=== PATIENT | male | born 1960 | race Caucasian/White ===

== ENCOUNTER → 2016-09-10 | Outpatient (REF) | payer BC | LOC: M SFHCPLAZ 12:20 → M LAB REF 12:20 | PROVIDERS: ATTEND Dermatology | DX: L57.0 Actinic keratosis (principal) ==

== ENCOUNTER → 2016-10-31 | Outpatient (REF) | payer BC ==
[2016-10-31 13:15] LABS: MEAN CORPUSCULAR HEMOGLOBIN 30.5 pg (27.0-33.0); MEAN CORPUSCULAR HGB CONC 32.6 g/dl (32.0-36.5); MEAN CORPUSCULAR VOLUME 93.8 fl (80.0-96.0); RED CELL DISTRIBUTION WIDTH 12.9 % (11.5-14.5); WHITE BLOOD COUNT 5.8 K/mm3 (4.0-10.0)
[2016-10-31 13:26] LABS: ALBUMIN 3.7 GM/DL (3.2-5.2); ALBUMIN/GLOBULIN RATIO 1.28 (1.00-1.93); BILIRUBIN,TOTAL 0.9 MG/DL (0.2-1.0); CREATININE FOR GFR 1.38 MG/DL (0.70-1.30); GLOMERULAR FILTRATION RATE 56.5 (>56); POTASSIUM SERUM 3.9 MEQ/L (3.5-5.1); TOTAL PROTEIN 6.6 GM/DL (6.4-8.2)
== END ==
LOC: M SFHCPLAZ 08:05
PROVIDERS: ATTEND Family Medicine
DX: M32.10 Systemic lupus erythematosus, organ or system involvement unspecified (principal); M33.29 Polymyositis with other organ involvement; E78.2 Mixed hyperlipidemia; N18.3 Chronic kidney disease, stage 3 (moderate)

== ENCOUNTER → 2017-05-06 | Outpatient (REF) | payer BC ==
[2017-05-06 12:32] LABS: MEAN CORPUSCULAR HEMOGLOBIN 29.8 pg (27.0-33.0); MEAN CORPUSCULAR HGB CONC 32.5 g/dl (32.0-36.5); MEAN CORPUSCULAR VOLUME 91.5 fl (80.0-96.0); PLATELET COUNT, AUTOMATED 210 10^3/uL (150-450); RED CELL DISTRIBUTION WIDTH 12.7 % (11.5-14.5); WHITE BLOOD COUNT 7.6 10^3/uL (4.0-10.0)
[2017-05-06 13:04] LABS: ALBUMIN 3.8 GM/DL (3.2-5.2); ALBUMIN/GLOBULIN RATIO 1.19 (1.00-1.93); BILIRUBIN,TOTAL 0.7 MG/DL (0.2-1.0); CREATININE FOR GFR 1.55 MG/DL (0.70-1.30); GLOMERULAR FILTRATION RATE 49.3 (>56); POTASSIUM SERUM 4.2 MEQ/L (3.5-5.1)
== END ==
LOC: M SFHCADAM 08:04
PROVIDERS: ATTEND Family Medicine
DX: N18.3 Chronic kidney disease, stage 3 (moderate) (principal); M33.29 Polymyositis with other organ involvement; E78.2 Mixed hyperlipidemia; Z12.5 Encounter for screening for malignant neoplasm of prostate
CPT/HCPCS: 80053; 80061; 82550; 85027; G0103

== ENCOUNTER → 2017-11-05 | Outpatient (REF) | payer BC, MEDICARE ==
[2017-11-05 19:24] LABS: ALBUMIN 3.5 GM/DL (3.2-5.2); ALKALINE PHOSPHATASE 52 U/L (45-117); ALT/SGPT 25 U/L (12-78); ANION GAP 6 MEQ/L (8-16); AST/SGOT 13 U/L (7-37); BILIRUBIN,TOTAL 0.5 MG/DL (0.2-1.0); BLOOD UREA NITROGEN 12 MG/DL (7-18); CALCIUM LEVEL 8.5 MG/DL (8.5-10.1); CARBON DIOXIDE LEVEL 29 MEQ/L (21-32); CHLORIDE LEVEL 108 MEQ/L (98-107); CPK CREATINE PHOSPHOKINASE 149 U/L (39-308); CREATININE FOR GFR 1.31 MG/DL (0.70-1.30); GLOMERULAR FILTRATION RATE 59.8 (>56); GLUCOSE, FASTING 95 MG/DL (70-100); POTASSIUM SERUM 4.2 MEQ/L (3.5-5.1); SODIUM LEVEL 143 MEQ/L (136-145); TOTAL PROTEIN 6.2 GM/DL (6.4-8.2)
[2017-11-05 19:28] LABS: HEMATOCRIT 43.4 % (42.0-52.0); HEMOGLOBIN 13.8 g/dl (13.5-17.5); MEAN CORPUSCULAR HEMOGLOBIN 29.8 pg (27.0-33.0); MEAN CORPUSCULAR HGB CONC 31.8 g/dl (32.0-36.5); MEAN CORPUSCULAR VOLUME 93.7 fl (80.0-96.0); PLATELET COUNT, AUTOMATED 179 10^3/uL (150-450); RED BLOOD COUNT 4.63 10^6/uL (4.30-6.10); WHITE BLOOD COUNT 8.1 10^3/uL (4.0-10.0)
[2017-11-05 20:16] LABS: ERYTHROCYTE SEDIMENTATION RATE 1 mm/hr (0-20)
== END ==
LOC: M SFHCADAM 11:47
DX: N18.3 Chronic kidney disease, stage 3 (moderate) (principal); M33.29 Polymyositis with other organ involvement
CPT/HCPCS: 82550

== ENCOUNTER → 2018-01-06 | Outpatient (CLI) | payer MEDICARE, BC ==
[~2018-01-06] MED LIST: GASTROGRAFIN SOLUTION 30ML (Q9963) As Ordered; ISOVUE-370 76% 100ML VIAL (Q9967) As Ordered
== END ==
LOC: M RAD 11:59
DX: R10.32 Left lower quadrant pain (principal); Z87.448 Personal history of other diseases of urinary system
CPT/HCPCS: Q9963

== ENCOUNTER → 2018-01-09 | Outpatient (CLI) | payer MEDICARE, BC ==
[~2018-01-09] MED LIST changes: +E-Z-GAS II EFFERVESCENT PACKET (SODIUM BICARB./CITRIC ACID/SIMETHICONE) As Ordered; +E-Z-HD 98% w/w 340GM SUSP BTL As Ordered; +E-Z-PAQUE 96% w/w SUSP 176GM BTL As Ordered; -GASTROGRAFIN SOLUTION 30ML (Q9963) As Ordered; -ISOVUE-370 76% 100ML VIAL (Q9967) As Ordered
== END ==
LOC: M RAD 10:32
DX: R13.10 Dysphagia, unspecified (principal)
CPT/HCPCS: 74220

== ENCOUNTER → 2018-01-19 | Outpatient (CLI) | payer MEDICARE, BC ==
[2018-01-19 17:19] LABS: ANION GAP 5 MEQ/L (8-16); BLOOD UREA NITROGEN 16 MG/DL (7-18); CARBON DIOXIDE LEVEL 31 MEQ/L (21-32); CHLORIDE LEVEL 104 MEQ/L (98-107); CREATININE FOR GFR 1.38 MG/DL (0.70-1.30); GLOMERULAR FILTRATION RATE 56.3 (>56); GLUCOSE, FASTING 104 MG/DL (70-100); POTASSIUM SERUM 4.3 MEQ/L (3.5-5.1); SODIUM LEVEL 140 MEQ/L (136-145)
== END ==
LOC: M SMT 14:41
DX: N13.0 Hydronephrosis with ureteropelvic junction obstruction (principal)
CPT/HCPCS: 80048

== ENCOUNTER → 2018-01-19 | Outpatient (REF) | payer MEDICARE, BC ==
[2018-01-19 17:48] LABS: APPEARANCE, URINE CLEAR (CLEAR); BACTERIA, URINE AUTO NEGATIVE (NEGATIVE); BILIRUBIN, URINE AUTO NEGATIVE (NEGATIVE); BLOOD, URINE BLOOD NEGATIVE (NEGATIVE); COLOR, URINE STRAW (YELLOW); GLUCOSE, URINE (UA) AUTO NEGATIVE (NEGATIVE); KETONE, URINE AUTO NEGATIVE (NEGATIVE); LEUKOCYTE ESTERASE, URINE AUTO NEGATIVE (NEGATIVE); NITRITE, URINE AUTO NEGATIVE (NEGATIVE); PROTEIN, URINE AUTO NEGATIVE (NEGATIVE); RBC, URINE AUTO 0 /HPF (0-3); SQUAMOUS EPITHELIAL CELL UR AU 0 /HPF (0-6); UROBILINOGEN, URINE AUTO 0.2 mg/dL (0.0-2.0); WBC, URINE AUTO 1 /HPF (0-3)
== END ==
LOC: M SMT 17:27
DX: N13.0 Hydronephrosis with ureteropelvic junction obstruction (principal)
CPT/HCPCS: 81001

== ENCOUNTER → 2018-01-22 | Outpatient (CLI) | payer MEDICARE, BC ==
[~2018-01-22] MED LIST changes: -E-Z-GAS II EFFERVESCENT PACKET (SODIUM BICARB./CITRIC ACID/SIMETHICONE) As Ordered; -E-Z-HD 98% w/w 340GM SUSP BTL As Ordered; -E-Z-PAQUE 96% w/w SUSP 176GM BTL As Ordered; +ISOVUE-370 76% 100ML VIAL (Q9967) As Ordered
== END ==
LOC: M RAD 07:57
DX: I31.3 Pericardial effusion (noninflammatory) (principal); N28.1 Cyst of kidney, acquired; N40.0 Benign prostatic hyperplasia without lower urinary tract symptoms
CPT/HCPCS: Q9967

== ENCOUNTER → 2018-04-30 | Outpatient (CLI) | payer MEDICARE, BC ==
[2018-04-30 13:06] LABS: BASO # 0.1 10^3/uL (0.0-0.2); BASO % 0.7 % (0.0-1.0); EOS # 0.1 10^3/uL (0.0-0.50); EOS % 1.4 % (0.0-3.0); HEMATOCRIT 44.1 % (42.0-52.0); HEMOGLOBIN 14.1 g/dl (13.5-17.5); IMMATURE GRANULOCYTE % 0.4 % (0-3.0); LYMPH # 1.7 10^3/uL (1.5-4.5); LYMPH % 23.4 % (24.0-44.0); MEAN CORPUSCULAR HEMOGLOBIN 29.8 pg (27.0-33.0); MEAN CORPUSCULAR VOLUME 93.2 fl (80.0-96.0); MONO # 0.6 10^3/uL (0.0-0.8); MONO % 7.7 % (0.0-5.0); NEUTROPHILS # 4.9 10^3/uL (1.8-7.7); NEUTROPHILS % 66.4 % (36.0-66.0); PLATELET COUNT, AUTOMATED 170 10^3/uL (150-450); RED BLOOD COUNT 4.73 10^6/uL (4.30-6.10); RED CELL DISTRIBUTION WIDTH 12.8 % (11.5-14.5); WHITE BLOOD COUNT 7.3 10^3/uL (4.0-10.0)
[2018-04-30 13:49] LABS: ERYTHROCYTE SEDIMENTATION RATE 1 mm/hr (0-20)
[2018-04-30 13:54] LABS: ALT/SGPT 31 U/L (12-78); AST/SGOT 20 U/L (7-37); C REACTIVE PROTEIN QUANTITATIV < 0.30 MG/DL (0.00-0.30); CPK CREATINE PHOSPHOKINASE 290 U/L (39-308); CREATININE FOR GFR 1.34 MG/DL (0.70-1.30); GLOMERULAR FILTRATION RATE 58.1 (>56)
[2018-04-30 13:54] LABS: BLOOD UREA NITROGEN 16 MG/DL (7-18)
[2018-04-30 15:02] LABS: COMPLEMENT C3 99 MG/DL (90-180); COMPLEMENT C4 24 MG/DL (10-40)
[2018-05-02 00:57] LABS: ANTI DOUBLE STRAND-DNA AB 17 IU/mL (0-9)
== END ==
LOC: M LABDRWAD 11:18
DX: M32.9 Systemic lupus erythematosus, unspecified (principal); G72.9 Myopathy, unspecified; Z79.899 Other long term (current) drug therapy
CPT/HCPCS: 84460

== ENCOUNTER → 2019-02-03 | Outpatient (CLI) | payer MEDICARE, BC ==
--- NOTE | 2019-02-03 10:50 | REP ---
Clinical: Renal cyst. Technique: Real time mario scale and color evaluation using curved array transducer. Findings: Right kidney is normal in contour, size, echogenicity without hydronephrosis, nephrolithiasis, cystic or renal mass lesion and measures 10.4 x 4.2 x 6.5 cm. The left kidney measures 11.5 x 6.9 x 6.0 cm and is normal in contour, size, echogenicity without hydronephrosis, nephrolithiasis or renal mass lesion. Multiple relatively simple appearing left peripelvic cysts are appreciated and confirmed by CT dated 01/22/2018. Impression: 1. Simple left peripelvic cysts. No definite hydronephrosis. 2. Normal right kidney. Electronically Signed by Juanito Neri MD 02/03/2019 10:42 A
== END ==
LOC: M RAD 09:49
PROVIDERS: ATTEND Internal Medicine Nephrology
DX: N28.1 Cyst of kidney, acquired (principal)

== ENCOUNTER → 2019-05-12 | Outpatient (REF) | payer MEDICARE, BC ==
[2019-05-12 13:36] LABS: BASO % 0.5 % (0.0-1.0); EOS # 0.1 10^3/uL (0.0-0.5); EOS % 1.1 % (0.0-3.0); HEMATOCRIT 46.5 % (42.0-52.0); HEMOGLOBIN 14.6 g/dl (13.5-17.5); LYMPH # 1.7 10^3/uL (1.5-5.0); LYMPH % 20.8 % (24.0-44.0); MEAN CORPUSCULAR HEMOGLOBIN 29.8 pg (27.0-33.0); MEAN CORPUSCULAR HGB CONC 31.4 g/dl (32.0-36.5); MEAN CORPUSCULAR VOLUME 94.9 fl (80.0-96.0); MONO # 0.6 10^3/uL (0.0-0.8); MONO % 7.1 % (0.0-5.0); NEUTROPHILS # 5.8 10^3/uL (1.5-8.5); NEUTROPHILS % 70.1 % (36.0-66.0); PLATELET COUNT, AUTOMATED 180 10^3/uL (150-450); WHITE BLOOD COUNT 8.3 10^3/uL (4.0-10.0)
[2019-05-12 14:07] LABS: ERYTHROCYTE SEDIMENTATION RATE 1 mm/hr (0-20)
[2019-05-12 15:32] LABS: ALT/SGPT 32 U/L (12-78); C REACTIVE PROTEIN QUANTITATIV < 0.30 MG/DL (0.00-0.30); CREATININE FOR GFR 1.48 MG/DL (0.70-1.30); GLOMERULAR FILTRATION RATE 51.6 (>49)
== END ==
LOC: M LABDRWAD 12:25
PROVIDERS: ATTEND Physician Assistant Medical
DX: Z79.899 Other long term (current) drug therapy (principal)

== ENCOUNTER → 2019-06-24 | Outpatient (REF) | payer MEDICARE, BC ==
[2019-06-24 13:01] LABS: ALBUMIN 4.4 GM/DL (3.2-5.2); BILIRUBIN,TOTAL 0.6 MG/DL (0.2-1.0); CALCIUM LEVEL 9.2 MG/DL (8.8-10.2); CREATININE FOR GFR 1.53 MG/DL (0.70-1.30); FREE T4 1.04 NG/DL (0.76-1.46); GLOMERULAR FILTRATION RATE 49.7 (>49); POTASSIUM SERUM 4.3 MEQ/L (3.5-5.1); THYROID STIMULATING HORMONE 2.34 uIU/ML (0.358-3.740); TOTAL PROTEIN 6.9 GM/DL (6.4-8.2)
== END ==
LOC: M SFHCADAM 10:44
PROVIDERS: ATTEND Family Medicine
DX: M33.29 Polymyositis with other organ involvement (principal); M32.10 Systemic lupus erythematosus, organ or system involvement unspecified; I73.00 Raynaud's syndrome without gangrene; Z12.5 Encounter for screening for malignant neoplasm of prostate
CPT/HCPCS: 80053; 82550; 84439; 84443; G0103; G0463

== ENCOUNTER → 2019-11-12 | Outpatient (REF) | payer MEDICARE, BC ==
[2019-11-12 13:08] LABS: BASO % 0.4 % (0.0-1.0); EOS # 0.1 10^3/uL (0.0-0.5); EOS % 1.3 % (0.0-3.0); HEMATOCRIT 44.9 % (42.0-52.0); HEMOGLOBIN 14.3 g/dl (13.5-17.5); LYMPH # 2.1 10^3/uL (1.5-5.0); LYMPH % 27.8 % (24.0-44.0); MEAN CORPUSCULAR HEMOGLOBIN 29.9 pg (27.0-33.0); MEAN CORPUSCULAR HGB CONC 31.8 g/dl (32.0-36.5); MEAN CORPUSCULAR VOLUME 93.9 fl (80.0-96.0); MONO # 0.6 10^3/uL (0.0-0.8); MONO % 8.2 % (0.0-5.0); NEUTROPHILS # 4.8 10^3/uL (1.5-8.5); PLATELET COUNT, AUTOMATED 206 10^3/uL (150-450); RED BLOOD COUNT 4.78 10^6/uL (4.30-6.10); WHITE BLOOD COUNT 7.7 10^3/uL (4.0-10.0)
[2019-11-12 13:31] LABS: ALT/SGPT 29 U/L (12-78); C REACTIVE PROTEIN QUANTITATIV < 0.30 MG/DL (0.00-0.30); CREATININE FOR GFR 1.44 MG/DL (0.70-1.30); GLOMERULAR FILTRATION RATE 53.3 (>49)
[2019-11-12 13:38] LABS: ERYTHROCYTE SEDIMENTATION RATE 2 mm/hr (0-20)
== END ==
LOC: M LABDRWAD 12:30
PROVIDERS: ATTEND Physician Assistant Medical
DX: M32.9 Systemic lupus erythematosus, unspecified (principal); Z79.899 Other long term (current) drug therapy

== ENCOUNTER → 2019-11-23 | Outpatient (REF) | payer MEDICARE, BC ==
[2019-11-23 17:12] LABS: HEMATOCRIT 45.9 % (42.0-52.0); HEMOGLOBIN 14.9 g/dl (13.5-17.5); MEAN CORPUSCULAR HEMOGLOBIN 29.4 pg (27.0-33.0); MEAN CORPUSCULAR HGB CONC 32.5 g/dl (32.0-36.5); MEAN CORPUSCULAR VOLUME 90.5 fl (80.0-96.0); PLATELET COUNT, AUTOMATED 184 10^3/uL (150-450); RED BLOOD COUNT 5.07 10^6/uL (4.30-6.10); WHITE BLOOD COUNT 6.8 10^3/uL (4.0-10.0)
[2019-11-23 17:32] LABS: ALBUMIN 4.1 GM/DL (3.2-5.2); CALCIUM LEVEL 9.3 MG/DL (8.8-10.2); CHOLESTEROL RISK RATIO 4.428 (<5); CREATININE FOR GFR 1.47 MG/DL (0.70-1.30); POTASSIUM SERUM 4.3 MEQ/L (3.5-5.1); TOTAL PROTEIN 6.5 GM/DL (6.4-8.2)
== END ==
LOC: M SFHCADAM 15:01
PROVIDERS: ATTEND Family Medicine
DX: N18.3 Chronic kidney disease, stage 3 (moderate) (principal); M32.10 Systemic lupus erythematosus, organ or system involvement unspecified; M33.29 Polymyositis with other organ involvement; E78.2 Mixed hyperlipidemia
CPT/HCPCS: 80053; 80061; 82550; 85027; G0463

== ENCOUNTER → 2020-06-25 | Outpatient (CLI) | payer MEDICARE, BC ==
[~2020-06-25] MED LIST changes: +CEVI1CAP PO; +ECOT81TA5 PO; +HYDR200T3 PO; -ISOVUE-370 76% 100ML VIAL (Q9967) As Ordered; +LEVOTAB10 PO; +LINZ145C PO; +LOVASA PO; +MYCO500T PO; +NIFE1TAB52 PO; +NOXI1TAB PO; +OMEP-218 PO
== END ==
LOC: M LABSMTC 08:42
PROVIDERS: ATTEND Anesthesiology
DX: Z01.812 Encounter for preprocedural laboratory examination (principal); Z20.822 Contact with and (suspected) exposure to COVID-19

== ENCOUNTER → 2020-06-26 | Outpatient (REF) | payer MEDICARE, BC ==
[2020-06-26 13:09] LABS: BASO # 0.1 10^3/uL (0.0-0.2); BASO % 0.6 % (0.0-1.0); EOS # 0.1 10^3/uL (0.0-0.5); EOS % 1.2 % (0.0-3.0); HEMATOCRIT 45.7 % (42.0-52.0); HEMOGLOBIN 14.4 g/dl (13.5-17.5); MEAN CORPUSCULAR HEMOGLOBIN 29.3 pg (27.0-33.0); MEAN CORPUSCULAR HGB CONC 31.5 g/dl (32.0-36.5); MEAN CORPUSCULAR VOLUME 93.1 fl (80.0-96.0); MONO # 0.6 10^3/uL (0.0-0.8); MONO % 7.1 % (0.0-5.0); NEUTROPHILS # 5.4 10^3/uL (1.5-8.5); NEUTROPHILS % 66.5 % (36.0-66.0); PLATELET COUNT, AUTOMATED 184 10^3/uL (150-450); RED BLOOD COUNT 4.91 10^6/uL (4.30-6.10); WHITE BLOOD COUNT 8.2 10^3/uL (4.0-10.0)
[2020-06-26 13:29] LABS: ALT/SGPT 25 U/L (12-78); C REACTIVE PROTEIN QUANTITATIV < 0.30 MG/DL (0.00-0.30); CREATININE FOR GFR 1.44 MG/DL (0.70-1.30); GLOMERULAR FILTRATION RATE 53.1 (>49)
[2020-06-26 13:36] LABS: ERYTHROCYTE SEDIMENTATION RATE 2 mm/hr (0-20)
== END ==
LOC: M LABDRWAD 12:26
PROVIDERS: ATTEND Physician Assistant Medical
DX: M32.9 Systemic lupus erythematosus, unspecified (principal); Z79.899 Other long term (current) drug therapy

== ENCOUNTER → 2020-06-28 | Outpatient (CLI) | payer MEDICARE, BC ==
--- NOTE | 2020-06-28 09:46 | REP ---
INDICATION: CKD 3 COMPARISON: 02/03/2019 TECHNIQUE: Real time mario scale ultrasound examination using curved array transducer. FINDINGS: The kidneys are normal in contour, size, echogenicity, and reniform shape without hydronephrosis, nephrolithiasis, or renal mass lesion. Right kidney measures 10.9 x 4.8 x 4.4 cm. Left kidney measures 12.0 x 4.8 x 5.5 cm and includes 1.6 x 1.2 x 1.2 cm peripelvic cyst. The bladder is normal in appearance and bilateral ureteral jets are identified. IMPRESSION: 1. Essentially normal renal ultrasound. Incidental small left peripelvic cyst. <Electronically signed by Juanito Neri > 06/28/20 0942
== END ==
LOC: M RAD 07:12
PROVIDERS: ATTEND Internal Medicine Nephrology
DX: N18.30 Chronic kidney disease, stage 3 unspecified (principal)

== ENCOUNTER 2020-06-30 09:00 | Day surgery (SDC) | payer MEDICARE, BC ==
[~2020-06-30] VITALS: Ht 175.3 cm; Wt 76.7 kg
[~2020-06-30 09:00] MED LIST changes: +LIDOCAINE 2% 100MG/5ML SDV (FOR ANES.) As Ordered ONE; +NS 1,000 ML IV ONE; +propofoL 200 MG/20 ML VIAL As Ordered ONE
[2020-06-30] MEDS ORDERED: propofoL 200 MG/20 ML VIAL As Ordered ONE (09:01)
--- OUTSIDE RECORDS SUMMARY | 2020-06-30 09:05 | CCD ---
Author Author [facility] Organization [facility] Address Unknown Phone Unavailable Care Team Providers Care Destination Sign Repairer Name Role Phone Jose Luis Schilling Unavailable PROBLEMS Type Condition ICD9-CM Code HRK31-ME Code Onset Dates Condition S tatus SNOMED Code Notes Problem Systemic lupus erythematosus, organ or system in volvement unspecified M32.10 Active 05559240 Problem Polymyositis with other organ involvement M33.29 Active 66315834 Problem Allergic rhinitis, unspecified J30.9 Active 6 1819847 Problem Gastro-esophageal reflux disease with esophagitis K21.0 Active 431429511 Problem Mixed hyperlipidemia E78.2 Active 697819283 Problem Raynaud's syndrome without gangrene I73.00 Acti ve 128509479 takes nifedipine during cold months only Problem Neoplasm of uncertain behavior of skin D48.5 A ctive 69535945 very tender area, his skin cancers are hard to appreciate due to the color of his skin, recommend bx site today to make sure no SCC or BCC Problem Spider angioma I78.1 Active 030241293 lesion of concern on right nose is a spider angioma Problem Actinic keratoses L57.0 Active 333018907 many small AKs today, will destroy Problem History of skin cancer Z85.828 Active 535825795 BCC left lower eyelid, SCC right preauricular Problem History of squamous cell carcinoma in situ Z86.008 Active 10988109579731 right scalp Problem Basal cell carcinoma of left side of neck C44.41 Active 172224412 discussed treatment option of excision or scraping and burning Problem Hydronephrosis N13.30 Active 11414640 Problem Neoplasm of unspecified behavior of bone, soft tissue, and skin D49.2 Active 87026708 eroded papule, recom mend bx Problem Sun-damaged skin L57.8 Active 27734313 chroni c actinic damage Problem Medicare annual wellness visit, subsequent Z00.00 Active 338845148 Problem 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 Discussed options for treatment, including destruction with ED & C or ED & freeze, excision, radiation, topical chemotherapy Problem History of basal cell cancer Z85.828 Active 428 815064 No areas of concern today, no evidence of recurrence Problem Chronic kidney disease, stage 3 (moderate) N18.3 Active 024669447 Problem Esophageal spasm K22.4 Active 097820459 Problem Aphthous ulcer of mouth K12.0 Active 08357327 5 Problem Carpal tunnel syndrome of left wrist G56.02 Act zackary [id number] Problem Parapelvic renal cyst N28.1 Active 5031575332 52729 ALLERGIES Allergen (clinical drug ingredient) Drug/Non Drug Allergy do cumented on EMR Reaction Allergy Type Onset Date Status enviromental allergies Unknown Non Drug Allergy Active MTX inc LFT 08/15 Non Drug Allergy Active ENCOUNTERS from 1960 to 2020-06-17 Encounter Location Date Provider Diagnosis [facility] [address] [place] [address] 15 Jun, 2020 Abiodun Schilling IMMUNIZATIONS Vaccine Route Administration Date Status TDAP (Pharmacy Given) Unknown Apr 20, 2020 Administer ed Pneumococcal Adult 0.5mL (Pneumovax 23) Unknown August Administered TDAP Unknown September 05, 2011 Administered Pneumococcal 0.5mL (Prevnar 13) IM Intramuscular November 28, 2015 Administered Influenza (6mo & up) Fluzone Unknown Mar 24, 2017 Adm inistered Influenza (6mo & up) Fluzone Unknown Apr 08, 2016 Adm inistered Influenza (6mo & up) Fluzone IM Intramuscular May 04, 2015 Ad ministered SOCIAL HISTORY Tobacco Use: Social History Observation Description Date Details (start date - stop date) Never Smoker Sex Assigned At : Social History Observation Description Sex Assigned At Unknown Audit Question Answer Notes Total Score: 0 Interpretation: Alcohol Education Language: Question Answer Notes Languages spoken: Citizen [place] Rastafarian: Question Answer Notes Rastafarian No mandaeism beliefs that would impact health care. Sexual Hx: Question Answer Notes Had sex in the last 12 months (vaginal, oral, or anal)? No Have you ever had an STD? No Drug and Alcohol Question Answer Notes Total Score: 0 Interpretation: No problems reported Alcohol Screening: Question Answer Notes Did you have a drink containing alcohol in the past year? No Points 0 Interpretation Negative Tobacco Use: Question Answer Notes Are you a: never smoker REASON FOR REFERRAL No Information VITAL SIGNS No information MEDICATIONS Medication SIG (Take, Route, Frequency, Duration) Notes Start Da te End Date Status Bactroban 2 % 1 application to breakouts Externally as needed Active PredniSONE 5 MG 1 tablet Orally once daily as needed for 90 Active CellCept 500 MG 3 capsules Orally Twice a day Active Xyzal 5 MG 1 tab(s) Orally daily for 90 days Dec, Active Naftin 2 % 1 application to affected ar ea Externally to feet and groin Once a day for 2 weeks, repeat as needed May, Active Linzess 145 MCG TAKE ONE CAPSULE BY MOUTH ONCE A DAY FOR 90 DAYS for 90 Active Omeprazole 20 MG 1 capsule Orally bid for 90 Active Levocetirizine Dihydrochloride 5 MG TAKE ONE TABLET BY MOUTH DAILY FOR 90 DAYS for 90 Active Plaquenil 200 MG 1 tab(s) p.o. twice a day Active Aspirin 81 MG 1 tablet Orally Once a day Active Clobetasol Propionate 0.05 % 1 application to affected area Externally Twice a day for 30 day(s) Active Lovaza 1 GM 4 capsules p.o. at pm (Dr. 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 (Prob not; on nifedipine for R aynaud's) Medical History CKD 2 Medical History ? possible CREST in past Medical History allergies Medical History hypertriglyceridemia/elev LDL Medical History nl echo 05/11, nl EF, mild L VH; stress echo [facility] 05/13: nl study, EF 60-65%, no LVH noted; echo 8/18 EF 65%, small pericardial effusion Medical History immunosupressive tx Medical History BCCa left lower eyelid Medical History meralgia paresthetica left thigh Surgical History EGD/colonoscopy (I advise q 5 yr colo due to immune-suppression tx) 12/09, 12/14 Surgical History Lasiks bilat 1999 Surgical History vasectomy 1986 Surgical History tonsillectomy 1964 Surgical History esophageal dilatation 10/29/13 Surgical History cancer spots removed from face and head 01/15 Hospitalization History No know Hospitalization history Goals Section No Information Health Concerns No Information MEDICAL EQUIPMENT No Information MENTAL STATUS No Information FUNCTIONAL STATUS No Information ASSESSMENTS No Information PLAN OF TREATMENT Medication Medication Name Sig Start Date Stop Date Levocetirizine Dihydrochloride 5 MG TAKE ONE TABLET BY MOUTH DAILY FOR 90 DAYS for 90 Procardia XL 30 mg 1 tablet orally Once a day for 90 day(s) Next Appt Details Provider Name:Jose Luis Schilling, 2020-06 11:00:00 AM, [address], [place], [address], Insurance Providers Payer Name Payer Address Payer Phone Insured Name Patient Relati onship to Insured Coverage Start Date Coverage End Date MEDICARE Part A and B [address] [facility] [id number] [phone] MARCUS VALLE self [facility] [phone] [place] [phone] MARCUS VALLE self
--- OUTSIDE RECORDS SUMMARY | 2020-06-30 09:05 | CCD | Continuity of Care Document ---
Author Author [facility] Organization [facility] Address Unknown Phone Unavailable Care Team Providers Care Nut Grader Name Role Phone Radha Daly MD Unavailable Unavailable Allergies, Adverse Reactions, Alerts Substance Reaction Status Criticality methotrexate Active No Information Medications Medication Instructions Dosage Effective Dates (start - stop) Sta tus Comments mycophenolate mofetil 500 mg tablet take 3 tablet by o ral route 2 times every day 1500 MG - Active Plaquenil 200 mg tablet TAKE 2 TABLETS DAILY 400 MG - Active dxM32.9 aspirin 81 mg tablet,delayed release take 1 tablet by oral r oute every day 81 MG - Active cevimeline 30 mg capsule take 1 capsule by oral route 2 times ev cornelia day 30 MG - Active Vitamin D3 2,000 unit tablet take 1 by Oral route once 1 - Active levocetirizine 5 mg tablet take 1 tablet by oral route every day in the evening 5 MG - Active Linzess 145 mcg capsule take 1 capsule by oral route every day on an empty stomach at least 30 minutes before 1st meal of the day swallowing whole. Do not break, chew and/or open. 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 Diagnosis inter pretation (observable entity) Systemic lupus erythematosus, unspecified Diagnosis in terpretation (observable entity) Rheumatoid arthritis w/o rheumatoid factor, multiple s ites Diagnosis interpretation (observable entity) 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 Diagnosis inter pretation (observable entity) Myopathy, unspecified Diagnosis interpretation (observable entity) Other overlap syndromes Diagnosis interpretation (observable entity ) 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 Diagnosis inter pretation (observable entity) Other overlap syndromes Diagnosis interpretation (observable entity ) Other retirement (current) drug therapy Diagnosis inter pretation (observable entity) Systemic lupus erythematosus, unspecified Diagnosis in terpretation (observable entity) Rheumatoid arthritis w/o rheumatoid factor, multiple s ites Diagnosis interpretation (observable entity) 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 Diagnosis inter pretation (observable entity) Mixed connective tissue disease Diagnosis interpretation (observ able entity) Pain in joint Diagnosis interpretation (observable entity) 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 Diagnosis interpretation (observable e ntity) Systemic lupus erythematosus, unspecified Diagnosis in terpretation (observable entity) Myopathy, unspecified Diagnosis interpretation (observable entity) Other retirement (current) drug therapy Diagnosis inter pretation (observable entity) Systemic lupus erythematosus, unspecified Diagnosis in terpretation (observable entity) Myopathy, unspecified Diagnosis interpretation (observable entity) Other retirement (current) drug therapy Diagnosis inter pretation (observable entity) Mixed connective tissue disease Diagnosis interpretation (observ able entity) 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 Diagnosis interpretation (observable e ntity) Rheumatoid arthritis w/o rheumatoid factor of multiple sites Diagnosis interpretation (observable entity) SLE Diagnosis interpretation (observable entity) Mixed connective tissue disease Diagnosis interpretation (observ able entity) Myopathy Diagnosis interpretation (observable entity) 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 Diagnosis interpretation (observable e ntity) SLE Diagnosis interpretation (observable entity) SLE Diagnosis interpretation (observable entity) Rheumatoid arthritis w/o rheumatoid factor of multiple sites Diagnosis interpretation (observable entity) Other retirement drug therapy Diagnosis interpretation (observable e ntity) Mixed connective tissue disease Diagnosis interpretation (observ able entity) Myopathy Diagnosis interpretation (observable entity) Mixed connective tissue disease Diagnosis interpretation (observ able entity) Pain in joint Diagnosis interpretation (observable entity) Other retirement drug therapy Diagnosis interpretation (observable e ntity) Diarrhea Diagnosis interpretation (observable entity) Mixed connective tissue disease Diagnosis interpretation (observ able entity) 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 Diagnosis interpretation (observable e ntity) 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 Diagnosis interpretation (observable e ntity) Myopathy Diagnosis interpretation (observable entity) Mixed connective tissue disease Diagnosis interpretation (observ able entity) Abnormal results of kidney function studies Diagnosis interpretation (observable entity) Abnormal result of hepatic function study Diagnosis in terpretation (observable entity) Mixed connective tissue disease Diagnosis interpretation (observ able entity) Myopathy Diagnosis interpretation (observable entity) Other retirement drug therapy Diagnosis interpretation (observable e ntity) Abnormal result of hepatic function study Diagnosis in terpretation (observable entity) Abnormal results of kidney function studies Diagnosis interpretation (observable entity) Polyarthritis Diagnosis interpretation (observable entity) Mixed connective tissue disease Diagnosis interpretation (observ able entity) Myopathy Diagnosis interpretation (observable entity) 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 Diagnosis interpretation (observable e ntity) Rheumatoid arthritis w/o rheumatoid factor of multiple sites Diagnosis interpretation (observable entity) SLE Diagnosis interpretation (observable entity) Abnormal results of kidney function studies Diagnosis interpretation (observable entity) Mixed connective tissue disease Diagnosis interpretation (observ able entity) Abnormal result of hepatic function study Diagnosis in terpretation (observable entity) Myopathy Diagnosis interpretation (observable entity) 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 Diagnosis interpretation (observable e ntity) Polyarthritis Diagnosis interpretation (observable entity) SLE Diagnosis interpretation (observable entity) Rheumatoid arthritis w/o rheumatoid factor of multiple sites Diagnosis interpretation (observable entity) Pain in right shoulder Diagnosis interpretation (observable entity) SLE Diagnosis interpretation (observable entity) Rheumatoid arthritis w/o rheumatoid factor of multiple sites Diagnosis interpretation (observable entity) Mixed connective tissue disease Diagnosis interpretation (observ able entity) Myopathy Diagnosis interpretation (observable entity) 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 Diagnosis interpretation (observable e ntity) Polyarthritis Diagnosis interpretation (observable entity) Abnormal result of hepatic function study Diagnosis in terpretation (observable entity) Mixed connective tissue disease Diagnosis interpretation (observ able entity) Rheumatoid arthritis w/o rheumatoid factor of multiple sites Diagnosis interpretation (observable entity) SLE Diagnosis interpretation (observable entity) 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 Diagnosis interpretation (observable e ntity) Myopathy Diagnosis interpretation (observable entity) Mixed connective tissue disease Diagnosis interpretation (observ able entity) Other specified abnormal findings of blood chemistry D iagnosis interpretation (observable entity) Mixed connective tissue disease Diagnosis interpretation (observ able entity) Myopathy Diagnosis interpretation (observable entity) Rheumatoid arthritis w/o rheumatoid factor of multiple sites Diagnosis interpretation (observable entity) SLE Diagnosis interpretation (observable entity) Mixed connective tissue disease Diagnosis interpretation (observ able entity) Polyarthritis Diagnosis interpretation (observable entity) 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 Diagnosis interpretation (observable e ntity) Mixed connective tissue disease Diagnosis interpretation (observ able entity) SLE Diagnosis interpretation (observable entity) Rheumatoid arthritis w/o rheumatoid factor of multiple sites Diagnosis interpretation (observable entity) Pain in joint Diagnosis interpretation (observable entity) Myopathy Diagnosis interpretation (observable entity) Other specified abnormal findings of blood chemistry D iagnosis interpretation (observable entity) SLE Diagnosis interpretation (observable entity) Polyarthritis Diagnosis interpretation (observable entity) Arthritis Problem (finding) - Active Lupus erythematosus Problem (finding) - Active Basal cell carcinoma of skin Problem (finding) - Activ e Hypercholesterolemia Problem (finding) - Active Gastroesophageal reflux disease Problem (finding) - Ac tive Sjgren's syndrome Problem (finding) - Active Polymyositis Problem (finding) - Active Indigestion Problem (finding) - Active Procedures Procedure Date No Information Results Test Name Date and Time Measure Units Reference Range Abnormal Flag St atus Comments No Information Advance Directives Directive Yes / No Effective Date File Name No Information Encounters Encounter Description Practice Location Reason(s) For Visit Diagnose s Date Provider Providers Copied on Encounter [facility], [address] [place] [address], [id number], [place] tel:[phone] [facility] No Information Malika Garcia. [address] [place] [address], [id number], [place]. tel:[phone] [facility], [address] [place] [address], [id number], [place] tel:[phone] [facility] Other overlap syndromes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 Asha Ni. [address] [place] [address], [id number], [place]. tel:[phone] Specialist: Ed Flower MD, [facility] [address] [facility], [place], [address]. tel:[phone] Provider: Radha Daly, [address] [place] [address], [id number]. tel:[phone] [facility], [address] [place] [address], [id number], [place] tel:[phone] [facility] Systemic lupus erythematosus, unspecified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 [facility] August. [address] [facility], [address], [place], [address], [place]. tel:[phone] [facility], [address] [place] [address], [id number], [place] tel:[phone] [facility] Systemic lupus erythematosus, unspecifiedRheumatoid arthritis w/o rheumatoid factor, multiple sites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Myopathy, unspecified [facility]. [address] [facility], [address], [place], [address], [place]. tel:[phone] Specialist: Ed Flower MD, [facility] [address] [place] [address], [address]. tel:[phone] Provider: Radha Daly, [address] [place] [address], [id number]. tel:[phone] [facility], [address] [place] [address], [id number], [place] tel:[phone] [facility] Other overlap syndromesOther retirement (current) drug therapy [facility] [address] [facility] [address], [place], [address], [place]. tel:[phone] [facility], [address] [place] [address], [id number], [place] tel:[phone] [facility] Other overlap syndromes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Systemic lupus erythematosus, unspecifiedRheumatoid arthritis w/o rheumatoid factor, multiple sites [facility]. [address] [facility], [address], [place], [address], [place]. tel:[phone] Specialist: Ed Flower MD, [facility] [address] [facility], [place], [address]. tel:[phone] Provider: Radha Daly, [address] [place] [address], [id number]. 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 [address] [place] [address], [id number], [place]. tel:[phone] [facility], [address] [place] [address], [id number], [place] tel:[phone] [facility] Mixed connective tissue diseasePain in joint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 Malika Garcia. [address] [place] [address], [id number], [place]. tel:[phone] Referring Provider: Radha Daly, [address] [place] [address], [id number]. tel:[phone] [facility], [address] [place] [address], [id number], [place] tel:[phone] [facility] Systemic lupus erythematosus, unspecifiedMyopathy, unspecifiedOther retirement (current) drug therapy Frdedy Ledbetter. [address] [place] [address], [id number], [place]. tel:[phone] [facility], [address] [place] [address], [id number], [place] tel:[phone] [facility] Systemic lupus erythematosus, unspecifiedMyopathy, unspecified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 Freddy Ledbetter. [address] [place], [place], [id number], [place]. tel:[phone] Referring Provider: Radha Daly, [address] [place] [address], [id number]. tel:[phone] [facility], [address] [place] [address], [id number], [place] tel:[phone] [facility] Mixed connective tissue diseaseOther retirement drug therapyRheumatoid arthritis w/o rheumatoid factor of multiple sitesSLE [place] [facility] Conner Susu. [address], [place], [address], [place]. tel:[phone] Referring Provider: Radha Daly, [address] [place] [address], [id number]. tel:[phone] [facility], [address] [place] [address], [id number], [place] tel:[phone] [facility] Mixed connective tissue diseaseMyopathyOther retirement drug therapySLE [place] SCOOBY Susu. [address], [place], [address], [place]. tel:[phone] Referring Provider: Radha Daly, [address] [place] [address], [id number]. tel:[phone] [facility], [address] [place] [address], [id number], [place] tel:[phone] [facility] SLERheumatoid arthritis w/o rheumatoid factor of multiple sitesOther retirement drug therapyMixed connective tissue diseaseMyopathy [facility] SCOOBY Susu. [address], [place], [address], [place]. tel:[phone] Referring Provider: Ed Savage, [address] [facility] [address], [place], [address]. tel:[phone] [facility], [address] [place] [address], [id number], [place] tel:[phone] [facility] Mixed connective tissue diseasePain in jointOther retirement drug therapyDiarrhea Malika Garcia. [address] [place] [address], [id number], [place]. tel:[phone] Referring Provider: Ed Savage, [address] [address], [place], [address]. tel:[phone] [facility], [address] [place] [address], [id number], [place] tel:[phone] [facility] Mixed connective tissue disease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 Manoj Nguyen. [address] [place] [address], [id number], [place]. tel:[phone] Referring Provider: Ed Savage, [address] [place] [address], [place], [address]. tel:[phone] [facility], [address] [place] [address], [id number], [place] tel:[phone] [facility] 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MyopathyMixed connective tissue diseaseAbnormal results of kidney function studiesAbnormal result of hepatic function study Susana ALMODOVAR Susu. [address] [place] [address], [address], [place]. tel:[phone] Referring Provider: Ed Savage, [address] [facility] [address], [place], [address]. tel:[phone] [facility], [address] [place] [address], [id number], [place] tel:[phone] [facility] Mixed connective tissue diseaseMyopathyOther retirement drug therapyAbnormal result of hepatic function studyAbnormal results of kidney function studiesPolyarthritis Susana ALMODOVAR Susu. [address] [facility] [address], [place], [address], [place]. tel:[phone] Referring Provider: Ed Savage, [address] [place] [address], [place], [address]. tel:[phone] [facility], [address] [place] [address], [id number], [place] tel:[phone] [facility] Mixed connective tissue diseaseMyopathyOther retirement drug therapyRheumatoid arthritis w/o rheumatoid factor of multiple sitesSLEAbnormal results of kidney function studies [facility] Susu. [address] [address], [place], [address], [place]. tel:[phone] Referring Provider: Ed Savage, [address] [place] [address], [place], [address]. tel:[phone] [facility], [address] [place] [address], [id number], [place] tel:[phone] [facility] Mixed connective tissue diseaseAbnormal result of hepatic function studyMyopathyOther retirement drug therapyPolyarthritisSLERheumatoid arthritis w/o rheumatoid factor of multiple sitesPain in right shoulder [facility]. [address], [address], [place]. tel:[phone] Referring Provider: Ed Savage, [address] [place] [address], [place], [address]. tel:[phone] [facility], [address] [place] [address], [id number], [place] tel:[phone] [facility] SLERheumatoid arthritis w/o rheumatoid factor of multiple sitesMixed connective tissue diseaseMyopathy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PolyarthritisAbnormal result of hepatic function study [facility]. [address] [address], [place], [address], [place]. tel:[phone] Referring Provider: Ed Savage, [address] [place] [address], [place], [address]. tel:[phone] [facility], [address] [place] [address], [id number], [place] tel:[phone] [facility] Mixed connective tissue diseaseRheumatoid arthritis w/o rheumatoid factor of multiple sitesSLE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Myopathy Anju altamirano PA-C Susu. [address] [facility] [address], [place], [address], [place]. tel:[phone] Referring Provider: Ed Savage, [address] [place] [address], [place], [address]. tel:[phone] [facility], [address] [place] [address], [id number], [place] tel:[phone] [facility] Mixed connective tissue diseaseOther specified abnormal findings of blood chemistry Susana ALMODOVAR Susu. [address] [facility] [address], [place], [address], [place]. tel:[phone] Referring Provider: Ed Savage, [address] [place] [address], [place], [address]. tel:[phone] [facility], [address] [place] [address], [id number], [place] tel:[phone] [facility] Mixed connective tissue diseaseMyopathy Susana ALMODOVAR Apr il. [address] [facility] [address], [place], [address], [place]. tel:[phone] [facility], [address] [place] [address], [id number], [place] tel:[phone] [facility] Rheumatoid arthritis w/o rheumatoid factor of multiple sitesSLEMixed connective tissue diseasePolyarthritisOther retirement drug therapy Suni spring PA-C August. [address] [facility], [address], [place], [address], [place]. tel:[phone] Referring Provider: Ed Savage, [address] [facility] [address], [place], [address]. tel:[phone] [facility], [address] [place], [place], [id number], [place] tel:[phone] [facility] Mixed connective tissue diseaseSLERheumatoid arthritis w/o rheumatoid factor of multiple sites Johnroberto Lopezhallie. [address] [place], [place], [id number], [place]. tel:[phone] Referring Provider: Ed Savage, [address] [facility] [address], [place], [address]. tel:[phone] [facility], [address] [place], [place], [id number], [place] tel:[phone] [facility] Pain in jointMyopathyOther specified abnormal findings of blood chemistrySLEPolyarthritis Johnroberto Radha. [address] [place], [place], [id number], [place]. tel:[phone] Referring Provider: Ed Savage, [address] [facility] [address], [place], [address]. tel:[phone] Family History Family Member Type Diagnosis Age At Onset Mother Problem (finding) Rheumatoid Arthritis Brother Problem (finding) Lower Back Pain Sister Problem (finding) Raynauds Disease Father Problem (finding) Gout Immunizations Vaccine Date Status Comments Flucelvax administered Source: Othe r Provider Influenza, injectable, MDCK, Flucelvax Quad Y 18 administered Note: per patient ; Source: Other Provider Influenza, injectable, quadrivalent, spl it virus, 18 years or older Afluria Quad 1522-6786 administered Source: New Immuniza tion Record Influenza, injectable, trivalent, split virus, 4 years and older, Fluvirin 1603-4006 administered Source: New Immuniza tion Record Influenza, split virus, injectable, 3 years and older Fluvirin 0203-5555 administered Note: approx ; Source: Other Provider Pneumococcal polysaccharide PPV23 administered Note: approx ; Source: Other Provider Payers Payer name Insurance type Covered green party ID Authorization(s ) Medicare [id number] BCBS No Referral Required BL [id number] BCBS No Referral Required BL [id number] BCBS No Referral Required BL [id number] Social History Type Description Quantity Date Captured Comments Sex Male Smoking Status No Information Vital Signs Date / Time: Height Weight BMI Pulse Rate Blood Pressure Temperatu re Respiratory Rate Body Surface Area Head Circumference BMI percentile Pulse Ox In haled Ox No Information Chief Complaint And Reason For Visit No Information Reason For Referral Reason For Referral No Information Plan Of Treatment Date Type Action Status Referral Ordered: *CHEST X-RAY, 2 VIEWS, FRONTAL, LATERAL ordered Appointment Francis Conde BOOKED History Of Present Illness Encounter Date Complaint History Of Present I llness No Information Functional Status Date Functional Assessment No Information Medications Administered Medication Instructions Dosage Effective Dates (start - stop) Sta tus Comments No Information Instructions Date Instruction Additional Informati on continue same medication plan call if symptoms worsen Risks/benefits of medications reviewed Labs ordered to check disease activity. Call if symptoms return Labs ordered to check blood counts, liver and kidney functions to monitor safety of medication. Discussed / Reviewed Labs Reviewed importance of compl iance/adherence to medications prescribed Risks/benefits of medications reviewed Reviewed importance of compl iance/adherence to medications prescribed Risks/benefits of medications reviewed Discussed importance of hold ing DMARDs/ biologics if patient develops an infection and to notify the treating physician Discussed / Reviewed Labs Reviewed importance of compl iance/adherence to medications prescribed Risks/benefits of medications reviewed Discussed importance of hold ing DMARDs/ biologics if patient develops an infection and to notify the treating physician Reviewed importance of compl iance/adherence to medications prescribed Risks/benefits of medications reviewed Risks/benefits of medications reviewed Reviewed importance of compl iance/adherence to medications prescribed Discussed importance of hold ing DMARDs/ biologics if patient develops an infection and to notify the treating physician Risks/benefits of medications reviewed Risks/benefits of medications reviewed Discussed / Reviewed Labs Risks/benefits of medications reviewed Reviewed importance of compl iance/adherence to medications prescribed Risks/benefits of medications reviewed Discussed importance of hold ing DMARDs/ biologics if patient develops an infection and to notify the treating physician Risks/benefits of medications reviewed Risks/benefits of medications reviewed Reviewed importance of compl iance/adherence to medications prescribed Risks/benefits of medications reviewed Discussed importance of hold ing DMARDs/ biologics if patient develops an infection and to notify the treating physician Risks/benefits of medications reviewed Risks/benefits of medications reviewed Risks/benefits of medications reviewed hold medication and call if any side eff ect develops call if symptoms worsen Risks/benefits of medications reviewed Labs ordered to check disease activity. Labs ordered to check blood counts, liver and kidney functions to monitor safety of medication. Discussed / Reviewed Labs Reviewed importance of compl iance/adherence to medications prescribed Risks/benefits of medications reviewed Discussed importance of hold ing DMARDs/ biologics if patient develops an infection and to notify the treating physician Reviewed importance of compl iance/adherence to medications prescribed Risks/benefits of medications reviewed Discussed importance of hold ing DMARDs/ biologics if patient develops an infection and to notify the treating physician Avoid OTC NSAIDS Reviewed importance of compl iance/adherence to medications prescribed Risks/benefits of medications reviewed Discussed importance of hold ing DMARDs/ biologics if patient develops an infection and to notify the treating physician Risks/benefits of medications reviewed Risks/benefits of medications reviewed Discussed / Reviewed Labs Diagnostic studies discussed/reviewed: L abs Call if symptoms persist Reviewed importance of compl iance/adherence to medications prescribed Avoid acetaminophen Risks/benefits of medications reviewed Discussed importance of hold ing DMARDs/ biologics if patient develops an infection and to notify the treating physician Diagnostic studies discussed/reviewed: L abs Reviewed importance of compl iance/adherence to medications prescribed Risks/benefits of medications reviewed Risks/benefits of medications discussed, handout given on [employer] Discussed importance of hold ing DMARDs/ biologics if patient develops an infection and to notify the treating physician Reviewed importance of compl iance/adherence to medications prescribed Risks/benefits of medications reviewed Discussed importance of hold ing DMARDs/ biologics if patient develops an infection and to notify the treating physician Diagnostic studies discussed/reviewed: L abs Reviewed importance of compl iance/adherence to medications prescribed Risks/benefits of medications reviewed Discussed importance of hold ing DMARDs/ biologics if patient develops an infection and to notify the treating physician Diagnostic studies discussed/reviewed: L abs Risks/benefits of medications reviewed Physical Examination Exam Findings Details No Information
--- OUTSIDE RECORDS SUMMARY | 2020-06-30 09:05 | CCD ---
Author Author [facility] Organization [facility] Address Unknown Phone Unavailable Care Team Providers Care What Job Titles Mean Name Role Phone NANO MONTGOMERY MD Unavailable Unavailable NANO MONTGOMERY MD Unavailable Unavailable NANO MONTGOMERY MD Unavailable Unavailable NANO MONTGOMERY MD Unavailable Unavailable NANO MONTGOMERY MD Unavailable Unavailable NANO MONTGOMERY MD Unavailable Unavailable NANO MONTGOMERY MD Unavailable Unavailable NANO MONTGOMERY MD Unavailable Unavailable NANO MONTGOMERY MD Unavailable Unavailable NANO MONTGOMERY MD Unavailable Unavailable NANO MONTGOMERY MD Unavailable Unavailable NANO MONTGOMERY MD Unavailable Unavailable NANO MONTGOMERY MD Unavailable Unavailable NANO MONTGOMERY MD Unavailable Unavailable NANO MONTGOMERY MD Unavailable Unavailable NANO MONTGOMERY MD Unavailable Unavailable NANO MONTGOMERY MD Unavailable Unavailable NANO MONTGOMERY MD Unavailable Unavailable NANO MONTGOMERY MD Unavailable Unavailable NANO MONTGOMERY MD Unavailable Unavailable NANO MONTGOMERY MD Unavailable Unavailable NANO MONTGOMERY MD Unavailable Unavailable NANO MONTGOMERY MD Unavailable Unavailable NANO MONTGOMERY MD Unavailable Unavailable NANO MONTGOMERY MD Unavailable Unavailable KHAIRALLAH, RAMZI MD Unavailable Unavailable KHAIRALLAH, RAMZI MD Unavailable Unavailable KHAIRALLAH, RAMZI MD Unavailable Unavailable KHAIRALLAH, RAMZI MD Unavailable Unavailable KHAIRALLAH, RAMZI MD Unavailable Unavailable KHAIRALLAH, RAMZI MD Unavailable Unavailable KHAIRALLAH, RAMZI MD Unavailable Unavailable KHAIRALLAH, RAMZI MD Unavailable Unavailable KHAIRALLAH, RAMZI MD Unavailable Unavailable KHAIRALLAH, RAMZI MD Unavailable Unavailable KHAIRALLAH, RAMZI MD Unavailable Unavailable KHAIRALLAH, RAMZI MD Unavailable Unavailable KHAIRALLAH, RAMZI MD Unavailable Unavailable KHAIRALLAH, RAMZI MD Unavailable Unavailable KHAIRALLAH, RAMZI MD Unavailable Unavailable KHAIRALLAH, RAMZI MD Unavailable Unavailable KHAIRALLAH, RAMZI MD Unavailable Unavailable KHAIRALLAH, RAMZI MD Unavailable Unavailable KHAIRALLAH, RAMZI MD Unavailable Unavailable KHAIRALLAH, RAMZI MD Unavailable Unavailable KHAIRALLAH, RAMZI MD Unavailable Unavailable KHAIRALLAH, RAMZI MD Unavailable Unavailable KHAIRALLAH, RAMZI MD Unavailable Unavailable KHAIRALLAH, RAMZI MD Unavailable Unavailable KHAIRALLAH, RAMZI MD Unavailable Unavailable KHAIRALLAH, RAMZI MD Unavailable Unavailable KHAIRALLAH, RAMZI MD Unavailable Unavailable KHAIRALLAH, RAMZI MD Unavailable Unavailable KHAIRALLAH, RAMZI MD Unavailable Unavailable KHAIRALLAH, RAMZI MD Unavailable Unavailable KHAIRALLAH, RAMZI MD Unavailable Unavailable KHAIRALLAH, RAMZI MD Unavailable Unavailable KHAIRALLAH, RAMZI MD Unavailable Unavailable KHAIRALLAH, RAMZI MD Unavailable Unavailable KHAIRALLAH, RAMZI MD Unavailable Unavailable KHAIRALLAH, RAMZI MD Unavailable Unavailable KHAIRALLAH, RAMZI MD Unavailable Unavailable KHAIRALLAH, RAMZI MD Unavailable Unavailable KHAIRALLAH, RAMZI MD Unavailable Unavailable KHAIRALLAH, RAMZI MD Unavailable Unavailable KHAIRALLAH, RAMZI MD Unavailable Unavailable KHAIRALLAH, RAMZI MD Unavailable Unavailable KHAIRALLAH, RAMZI MD Unavailable Unavailable KHAIRALLAH, RAMZI MD Unavailable Unavailable KHAIRALLAH, RAMZI MD Unavailable Unavailable KHAIRALLAH, RAMZI MD Unavailable Unavailable KHAIRALLAH, RAMZI MD Unavailable Unavailable KHAIRALLAH, RAMZI MD Unavailable Unavailable KHAIRALLAH, RAMZI MD Unavailable Unavailable KHAIRALLAH, RAMZI MD Unavailable Unavailable KHAIRALLAH, RAMZI MD Unavailable Unavailable KHAIRALLAH, RAMZI MD Unavailable Unavailable NANO MONTGOMERY MD Unavailable Unavailable NANO MONTGOMERY MD Unavailable Unavailable NANO MONTGOMERY MD Unavailable Unavailable NANO MONTGOMERY MD Unavailable Unavailable NANO MONTGOMERY MD Unavailable Unavailable NANO MONTGOMERY MD Unavailable Unavailable NANO MONTGOMERY MD Unavailable Unavailable NANO MONTGOMERY MD Unavailable Unavailable NANO MONTGOMERY MD Unavailable Unavailable MCILVAIN, M MODESTA PA Unavailable Unavailable MCILVAIN, M MODESTA PA Unavailable Unavailable MCILVAIN, M MODESTA PA Unavailable Unavailable MCILVAIN, M MODESTA PA Unavailable Unavailable MCILVAIN, M MODESTA PA Unavailable Unavailable MCILVAIN, M MODESTA PA Unavailable Unavailable MCILVAIN, M MODESTA PA Unavailable Unavailable MCILVAIN, M MODESTA PA Unavailable Unavailable MCILVAIN, M MODESTA PA Unavailable Unavailable MCILVAIN, M MODESTA PA Unavailable Unavailable MCILVAIN, M MODESTA PA Unavailable Unavailable MCILVAIN, M MODESTA PA Unavailable Unavailable MCILVAIN, M MODESTA PA Unavailable Unavailable MCILVAIN, M MODESTA PA Unavailable Unavailable MCILVAIN, M MODESTA PA Unavailable Unavailable MCILVAIN, M MODESTA PA Unavailable Unavailable MCILVAIN, M MODESTA PA Unavailable Unavailable MCILVAIN, M MODESTA PA Unavailable Unavailable MCILVAIN, M MODESTA PA Unavailable Unavailable MCILVAIN, M MODESTA PA Unavailable Unavailable MCILVAIN, M MODESTA PA Unavailable Unavailable MCILVAIN, M MODESTA PA Unavailable Unavailable MCILVAIN, M MODESTA PA Unavailable Unavailable MCILVAIN, M MODESTA PA Unavailable Unavailable MCILVAIN, M MODESTA PA Unavailable Unavailable MCILVAIN, M MODESTA PA Unavailable Unavailable MCILVAIN, M MODESTA PA Unavailable Unavailable MCILVAIN, M MODESTA PA Unavailable Unavailable MCILVAIN, M MODESTA PA Unavailable Unavailable MCILVAIN, M MODESTA PA Unavailable Unavailable MCILVAIN, M MODESTA PA Unavailable Unavailable MCILVAIN, M MODESTA PA Unavailable Unavailable MCILVAIN, M MODESTA PA Unavailable Unavailable MCILVAIN, M MODESTA PA Unavailable Unavailable MCILVAIN, M MODESTA PA Unavailable Unavailable MCILVAIN, M MODESTA PA Unavailable Unavailable MCILVAIN, M MODESTA PA Unavailable Unavailable MCILVAIN, M MODESTA PA Unavailable Unavailable MCILVAIN, M MODESTA PA Unavailable Unavailable MCILVAIN, M MODESTA PA Unavailable Unavailable MCILVAIN, M MODESTA PA Unavailable Unavailable MCILVAIN, M MODESTA PA Unavailable Unavailable MCILVAIN, M MODESTA PA Unavailable Unavailable MCILVAIN, M MODESTA PA Unavailable Unavailable MCILVAIN, M MODESTA PA Unavailable Unavailable MCILVAIN, M MODESTA PA Unavailable Unavailable MCILVAIN, M MODESTA PA Unavailable Unavailable MCILVAIN, M MODESTA PA Unavailable Unavailable MCILVAIN, M MODESTA PA Unavailable Unavailable MCILVAIN, M MODESTA PA Unavailable Unavailable MCILVAIN, M MODESTA PA Unavailable Unavailable MCILVAIN, M MODESTA PA Unavailable Unavailable MCILVAIN, M MODESTA PA Unavailable Unavailable MCILVAIN, M MODESTA PA Unavailable Unavailable MCILVAIN, M MODESTA PA Unavailable Unavailable MCILVAIN, M MODESTA PA Unavailable Unavailable MCILVAIN, M MODESTA PA Unavailable Unavailable MCILVAIN, M MODESTA PA Unavailable Unavailable MCILVAIN, M MODESTA PA Unavailable Unavailable Janette Florence MD Unavailable Unavailable Pikarsky, Last SVP OF DIGITAL Unavailable Unavailable Pikarsky, Last SVP OF DIGITAL Unavailable Unavailable Pikarsky, Last SVP OF DIGITAL Unavailable Unavailable Pikarsky, Last SVP OF DIGITAL Unavailable Unavailable Pikarsky, Last SVP OF DIGITAL Unavailable Unavailable Pikarsky, Last SVP OF DIGITAL Unavailable Unavailable Pikarsky, Last SVP OF DIGITAL Unavailable Unavailable Pikarsky, Last SVP OF DIGITAL Unavailable Unavailable Pikarsky, Last SVP OF DIGITAL Unavailable Unavailable Pikarsky, Last SVP OF DIGITAL Unavailable Unavailable Pikarsky, Last SVP OF DIGITAL Unavailable Unavailable Pikarsky, Last SVP OF DIGITAL Unavailable Unavailable Pikarsky, Last SVP OF DIGITAL Unavailable Unavailable Pikarsky, Last SVP OF DIGITAL Unavailable Unavailable Pikarsky, Last SVP OF DIGITAL Unavailable Unavailable Pikarsky, Last SVP OF DIGITAL Unavailable Unavailable Pikarsky, Last SVP OF DIGITAL Unavailable Unavailable Pikarsky, Last SVP OF DIGITAL Unavailable Unavailable Pikarsky, Last SVP OF DIGITAL Unavailable Unavailable Pikarsky, Last SVP OF DIGITAL Unavailable Unavailable Pikarsky, Last SVP OF DIGITAL Unavailable Unavailable Pikarsky, Last SVP OF DIGITAL Unavailable Unavailable Pikarsky, Last SVP OF DIGITAL Unavailable Unavailable Pikarsky, Last SVP OF DIGITAL Unavailable Unavailable Redby, Susu RPA-C Unavailable Unavailable Susana, Susu RPA-C Unavailable Unavailable Susana, Susu RPA-C Unavailable Unavailable Redby, Susu RPA-C Unavailable Unavailable Susana, Susu RPA-C Unavailable Unavailable Susana, Susu RPA-C Unavailable Unavailable Redby, Susu RPA-C Unavailable Unavailable Redby, Susu RPA-C Unavailable Unavailable Susana, Susu RPA-C Unavailable Unavailable Susana, Susu RPA-C Unavailable Unavailable Susana, Susu RPA-C Unavailable Unavailable Redby, Susu RPA-C Unavailable Unavailable Redby, Susu RPA-C Unavailable Unavailable Redby, Susu RPA-C Unavailable Unavailable Redby, Susu RPA-C Unavailable Unavailable Redby, Susu RPA-C Unavailable Unavailable Redby, Susu RPA-C Unavailable Unavailable Susana, Susu RPA-C Unavailable Unavailable Redby, Susu RPA-C Unavailable Unavailable Redby, Susu RPA-C Unavailable Unavailable Redby, Susu RPA-C Unavailable Unavailable Redby, Susu RPA-C Unavailable Unavailable Redby, Susu RPA-C Unavailable Unavailable Redby, Susu RPA-C Unavailable Unavailable Susana, Susu RPA-C Unavailable Unavailable Redby, Susu RPA-C Unavailable Unavailable Redby, Susu RPA-C Unavailable Unavailable Susana, Susu RPA-C Unavailable Unavailable Susana, Susu RPA-C Unavailable Unavailable Susana, Susu RPA-C Unavailable Unavailable Redby, Susu RPA-C Unavailable Unavailable Susana, Susu RPA-C Unavailable Unavailable Susana, Susu RPA-C Unavailable Unavailable Redby, Susu RPA-C Unavailable Unavailable Redby, Susu RPA-C Unavailable Unavailable Susana, Susu RPA-C Unavailable Unavailable Redby, Susu RPA-C Unavailable Unavailable Susana, Susu RPA-C Unavailable Unavailable Redby, Susu RPA-C Unavailable Unavailable Redby, Susu RPA-C Unavailable Unavailable Redby, Susu RPA-C Unavailable Unavailable Redby, Susu RPA-C Unavailable Unavailable Redby, Susu RPA-C Unavailable Unavailable Redby, Susu RPA-C Unavailable Unavailable Redby, Susu RPA-C Unavailable Unavailable Redby, Susu RPA-C Unavailable Unavailable Susana, Susu RPA-C Unavailable Unavailable Redby, Susu RPA-C Unavailable Unavailable Susana, Susu RPA-C Unavailable Unavailable Redby, Susu RPA-C Unavailable Unavailable Redby, Susu RPA-C Unavailable Unavailable Susana, Susu RPA-C Unavailable Unavailable Susana, Susu RPA-C Unavailable Unavailable Redby, Susu RPA-C Unavailable Unavailable Susana, Susu RPA-C Unavailable Unavailable Redby, Susu RPA-C Unavailable Unavailable Susana, Susu RPA-C Unavailable Unavailable Redby, Susu RPA-C Unavailable Unavailable Susana, Susu RPA-C Unavailable Unavailable Redby, Susu RPA-C Unavailable Unavailable Susana, Susu RPA-C Unavailable Unavailable Susana, Susu RPA-C Unavailable Unavailable Susana, Susu RPA-C Unavailable Unavailable Redby, Susu RPA-C Unavailable Unavailable August RPA-C Unavailable Unavailable Re-disclosure Warning The records that you are about to access may contain information from federally-assisted alcohol or drug abuse programs. If such information is present, then the following federally mandated warning applies: This information has been disclosed to you from records protected by federal confidentiality rules (42 CFR part 2). The federal rules prohibit you from making any further disclosure of this information unless further disclosure is expressly permitted by the written consent of the person to whom it pertains or as otherwise permitted by 42 CFR part 2. A general authorization for the release of medical or other information is NOT sufficient for this purpose. The Federal rules restrict any use of the information to criminally investigate or prosecute any alcohol or drug abuse patient.The records that you are about to access may contain highly sensitive health information, the redisclosure of which is protected by Article 27-F of the [facility] Public Health law. If you continue you may have access to information: Regarding HIV / AIDS; Provided by facilities licensed or operated by the [facility] Office of Mental Health; or Provided by the [facility] Office for People With Developmental Disabilities. If such information is present, then the following [facility] mandated warning applies: This information has been disclosed to you from confidential records which are protected by state law. State law prohibits you from making any further disclosure of this information without the specific written consent of the person to whom it pertains, or as otherwise permitted by law. Any unauthorized further disclosure in violation of state law may result in a fine or senior care sentence or both. A general authorization for the release of medical or other information is NOT sufficient authorization for further disc losure. Allergies and Adverse Reactions Type Description Substance Reaction Status Data Source(s ) MTX MTX MTX inc LFT 08/15 Active eCW1 ([facility]) enviromental allergies enviromental allergies enviromental allergie s Unknown Active eCW1 ([facility]) Family History Family Member Name Family Member Gender Family Member Status Date o f Status Description Data Source(s) Unknown Unknown Problem MEDENT ([facility]) Unknown Male Problem MEDENT ([facility] Unknown Female Problem (finding) 06/12/2015 12:00:00 AM EST [facility] ([facility]) Encounters Encounter Providers Location Date Indications Data Source(s ) Unknown [address] [facility] [address] 06/16/2020 12:00:00 AM EST eCW1 (Formerly [facility], 1928–1983) Attender: NANO MONTGOMERY [facility] 06/13/2020 07:05:00 PM EST - 06/13/2020 07:05:00 PM EST [facility] ( [facility]) Attender: Last Beltrán NP [facility] 03/30/2020 09:00:00 AM EDT - 03/30/2020 09:00:00 AM EDT 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Other overlap syndromes [facility] ([facility]) 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 Other overlap syndromes Attender: MODESTA ROSE [facility] 02/17/2020 12:01:00 PM EDT - 02/17/2020 12:01:00 PM EDT [facility] ( [facility]) Attender: NANO MONTGOMERY MD [facility] 01/31/2020 03:32:00 PM EDT - 01/31/2020 03:32:00 PM EDT [facility] ( [facility]) [facility] [address] [facility] [address] 11/23/2019 12:00:00 AM EDT eCW1 (Formerly [facility], [facility]) Attender: Susu MARTINEZ [facility] 11/12/2019 10:05:00 AM EDT - 11/12/2019 10:05:00 AM EDT 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Systemic lupus erythematosus, unspecified [facility] ([facility]) 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) OutpatientOFFICE/OUTPATIENT VISIT, EST [facility]: [facility] 08/12/2019 09:00:00 AM EDT - 08/12/2019 09:00:00 AM EDT Myopathy, unspecified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 (cu rrent) drug therapyRheumatoid arthritis w/o rheumatoid factor, multiple sitesSystemic lupus erythematosus, unspecified [facility] ([facility]) Myopathy, unspecified Other senior living (current) drug therapy Rheumatoid arthritis w/o rheumatoid fact or, multiple sites Systemic lupus erythematosus, unspecifie d 08/09/2019 12:41:00 PM EDT - 020 12:41:00 PM EDT [facility] ([facility]) [facility] [address] [place] [address], [place] [address] 06/24/2019 12:00:00 AM EST eCW1 (Formerly [facility], 1928[facility]1983) Attender: MODESTA ROSE [facility] 06/16/2019 09:33:00 AM EST - 06/16/2019 09:33:00 AM EST [facility] ( [facility]) [facility] [address] [facility] [address] 06/11/2019 12:00:00 AM EST eCW1 (Formerly [facility], 1928[facility]1983) Attender: Susu Meza [facility] 05/24/2019 08:52:00 AM EST - 05/24/2019 08:52:00 AM EST [facility] ( [facility]) [facility] [address] [facility] [address] 05/19/2019 12:00:00 AM EST eCW1 (Formerly [facility], [facility]) Immunizations Vaccine Date Status Description Data Source(s) Tdap 04/20/2020 06:47:00 AM EST completed e CW1 ([facility]) Influenza, injectable, MDCK, preservative free, nicola valent 01/12/2020 12:00:00 AM EDT [facility]) Source: Other Provider Medications Medication Brand Name Start Date Product Form Dose Route Admi nistrative Instructions Pharmacy Instructions Status Indications Reaction Description Data Source(s) Hydroxychloroquine Sulfate 200 MG Oral T ablet [Plaquenil] Plaquenil 200 mg tablet Plaquenil 200 mg tablet 03/30/2020 12:00:00 AM EDT 2.00 {tbl} OR AL active hydroxychloroquine sulfate 200 M G Oral Tablet [Plaquenil] [facility]) dxM32.9 mycophenolate mofetil 500 MG Oral Tablet mycophenolate mofetil 500 mg tablet mycophenolate mofetil 500 mg tablet 03/30/2020 12:00:00 AM EDT 3 {tbl } ORAL active take 3 tablet by oral route 2 times every day [facility] ([facility]) mycophenolate mofetil 500 MG Oral Tablet mycophenolate mofetil 500 mg tablet mycophenolate mofetil 500 mg tablet 02/17/2020 12:00:00 AM EDT 3 {tbl } ORAL active take 3 tablet by oral route 2 times every day [facility] ([facility]) Hydroxychloroquine Sulfate 200 MG Oral T ablet [Plaquenil] Plaquenil 200 mg tablet Plaquenil 200 mg tablet 01/31/2020 12:00:00 AM EDT 2.00 {tbl} OR AL active hydroxychloroquine sulfate 200 M G Oral Tablet [Plaquenil] [facility] ([facility]) dxM32.9 POLYETHYLENE GLYCOL 3350 142 MG/ML Oral Solution [Miralax] M iralax 11/24/2019 12:00:00 AM EDT active M EDENT ([facility], ) Magnesium Hydroxide 80 MG/ML Oral Suspension Milk Of Magnesi a 11/24/2019 12:00:00 AM EDT ORAL active M EDENT ([facility], ) Hydroxychloroquine Sulfate 200 MG Oral T ablet [Plaquenil] HYDROXYCHLOR TAB 200MG HYDROXYCHLOR TAB 200MG 11/10/2019 12:00:00 AM EDT 2.00 {tbl} ORA L completed hydroxychloroquine sulfate 200 M G Oral Tablet [Plaquenil] [facility] ([facility]) mycophenolate mofetil 500 MG Oral Tablet MYCOPHENOLATE 500MG MYCOPHENOLATE 500MG 08/23/2019 12:00:00 AM EDT 3 {tbl} ORAL completed TAKE 3 TABLETS BY MOUTH TWICE DAILY [facility] ([facility]) Hydroxychloroquine Sulfate 200 MG Oral T ablet [Plaquenil] HYDROXYCHLOR TAB 200MG HYDROXYCHLOR TAB 200MG 08/23/2019 12:00:00 AM EDT 2.00 {tbl} ORA L completed Hydroxychloroquine Sulfate 200 M G Oral Tablet [Plaquenil] [facility] ([facility]) mycophenolate mofetil 500 MG Oral Tablet mycophenolate mofetil 500 mg tablet mycophenolate mofetil 500 mg tablet 06/16/2019 12:00:00 AM EST 3 {tbl } ORAL completed take 3 tablet by oral route 2 times every day [facility] ([facility]) Hydroxychloroquine Sulfate 200 MG Oral T ablet [Plaquenil] HYDROXYCHLOR TAB 200MG HYDROXYCHLOR TAB 200MG 05/24/2019 12:00:00 AM EST 2.00 {tbl} ORA L completed Hydroxychloroquine Sulfate 200 M G Oral Tablet [Plaquenil] [facility] ([facility]) Hydroxychloroquine Sulfate 200 MG Oral T ablet [Plaquenil] HYDROXYCHLOR TAB 200MG HYDROXYCHLOR TAB 200MG 02/16/2019 12:00:00 AM EDT 2.00 {tbl} ORA L completed Hydroxychloroquine Sulfate 200 M G Oral Tablet [Plaquenil] [facility] mycophenolate mofetil 500 MG Oral Tablet mycophenolate mofetil 500 mg tablet mycophenolate mofetil 500 mg tablet 10/15/2018 12:00:00 AM EDT 3 {tbl } ORAL completed take 3 tablet by oral route 2 times every day [facility] Insurance Providers Payer name Policy type / Coverage type Policy ID Covered democrat ID Covered democrat's relationship to calloway Policy [place] Plan Information BCBS [address] [id number] SP [id number] MEDICARE [id number] SP [id number] [id number] [facility] [id number] SELF [id number] SELF PAY COVID19 ONLY . . BLUE CROSS [id number] SELF [id number] MEDICARE [id number] SP [id number] A MEDICARE [id number] Mayuri [id number] Y93 EXCELLUS BCBS [id number] Mayuri NGN [id number] ANSI-Medicare Part B [id number] ANSI-Commercial [id number] [facility] [id number] Self [id number] [place] Primary [id number] Self [id number] ANSI-Commercial [id number] ANSI-Medicare Part B [id number] BLUE CARD C [id number] Self [id number] [facility] Blue Shield [facility] Part B [id number] Self [id number] Medicare Part B Medicare Primary [id number] Self [id number] ANSI-Commercial [id number] ANSI-Medicare Part B [id number] [facility] 200/700 [id number] SP [id number] MEDICARE [id number] SP [id number] ANSI-Medicare Part B [id number] ANSI-Commercial [id number] ANSI-Medicare Part B [id number] ANSI-Commercial [id number] ANSI-Commercial [id number] ANSI-Medicare Part B [id number] [place] 200/700 [id number] SP [id number] [place] 200/700 [id number] SP [id number] ANSI-Medicare Part B [id number] ANSI-Commercial [id number] [place] 200/700 [id number] SP [id number] [employer] BCBS Medigap Part B [id number] Self [id number] Medicare [place]/NGS Medicare Primary [id number] Self [id number] [place] PPO 302/307 [id number] SP [id number] BLUE CARD C [id number] Self [id number] BLUE CARD C [id number] Self [id number] [facility] [id number] S [id number] [facility] [id number] S [id number] [facility] [id number] S [id number] Problems, Conditions, and Diagnoses Code Display Name Description Problem Type Effective Dates Data Source(s) Z11.59 Encounter for screening for other viral diseases Z11.59 - Encounter for screening for other viral diseases Diagnosis 10/29/2019 10:23:00 AM ED [facility] B97.29 Other coronavirus as the cause of diseas es classified elsewhere B97.29 - Other coronavirus as the cause of diseases classified elsewhere Diagnosis 10/29/2019 10:23:00 AM EDT [facility] Z20.828 Contact with and (suspected) exposure to other viral communicable diseases Z20.828 - Contact with and (suspected) e xposure to other viral communicable diseases Diagnosis 10/29/2019 10:23:00 AM EDT [facility] Surgeries/Procedures Procedure Description Date Indications Data Source(s) ASSAY OF CK (CPK) 08/12/2019 12:00:00 AM EDT - 020 12:00:00 AM EDT [facility] ([facility]) OFFICE/OUTPATIENT VISIT, EST 08/12/2019 12:00:00 AM EDT - 08/12/2019 12:00:00 AM EDT [facility] ([facility]) ALANINE AMINO (ALT) (SGPT) 08/12/2019 12 :00:00 AM EDT - 08/12/2019 12:00:00 AM EDT [facility] ([facility]) TRANSFERASE (AST) (SGOT) 08/12/2019 12:0 0:00 AM EDT - 08/12/2019 12:00:00 AM EDT [facility] ([facility]) ASSAY OF CREATININE 08/12/2019 12:00:00 AM EDT - 08/11 12:00:00 AM EDT [facility] ([facility]) C-REACTIVE PROTEIN 08/12/2019 12:00:00 AM EDT - 2019 12:00:00 AM EDT [facility] ([facility]) RBC SED RATE, AUTOMATED 08/12/2019 12:00 :00 AM EDT - 08/12/2019 12:00:00 AM EDT [facility] ([facility]) COMPLETE CBC W/AUTO DIFF WBC 08/12/2019 12:00:00 AM EDT - 08/12/2019 12:00:00 AM EDT [facility] ([facility]) ROUTINE VENIPUNCTURE 08/12/2019 12:00:00 AM EDT - 08/12/2019 12:00:00 AM EDT [facility] ([facility]) Office Visit, Est Pt., Level 4 PC 06/24/2019 12:00:00 AM EST eCW1 ([facility]) Office Visit, Est Pt., Level 2 FC 06/24/2019 12:00:00 AM EST eCW1 ([facility]) Results ID Date Data Source [id number] 06/25/2020 09:00:00 AM EST [facility] Name Value Range Interpretation Code Description Data Ileana rce(s) Supporting Document(s) SARS coronavirus 2 RNA Not Detected [facility] [place] This lab was ordered by [facility] and reported by [facility]. ID Date Data Source [id number] 06/18/2020 12:00:00 AM EST [facility] Name Value Range Interpretation Code Description Data Ileana rce(s) Supporting Document(s) SARS coronavirus 2 RNA Not Detected [facility] [place] This lab was ordered by [facility] and reported by [facility]. ID Date Data Source [id number] 01/12/2020 11:22:00 AM EDT [facility] Name Value Range Interpretation Code Description Data Ileana rce(s) Supporting Document(s) COLOR Yellow [facility] _CLARITY Not Entered [facility] GLU,URINE Negative [facility] TA,URINE Negative [facility] KET,URINE Negative [facility] SG >=1.030 [facility] pH,URINE 5.5 [facility] PRO,URINE STRIP *1+ [facility] URO 0.2 E.U./dL [facility] NIT Negative [facility] BLO,URINE Negative [facility] SIXTO Negative [facility] ID Date Data Source [id number] 01/12/2020 11:22:00 AM EDT [facility] Name Value Range Interpretation Code Description Data Ileana rce(s) Supporting Document(s) U ALB 3.7 mg/L 1.3-100.0 [facility] MALB/CREA RATIO 0.6 mg/g 0.0-30.0 [facility] UPRO 117.1 mg/dl 0.0-12.0 Above high normal [facility] UCREA 590.5 mg/dl 14.0-109.0 PH [facility] UPC 0.2 CALC [facility] M:C/UPC RATIO 3.2 [facility] Please disregard M:C/UPC ratio if UPC is less than 0.5 ID Date Data Source [id number] 01/12/2020 11:22:00 AM EDT [facility] Name Value Range Interpretation Code Description Data Ileana rce(s) Supporting Document(s) WBC,URINE 0-2 [facility] AMORPH 1+ [facility] MUCUS 2+ [facility] ID Date Data Source [id number] 11/02/2019 11:24:00 AM EDT [facility] Name Value Range Interpretation Code Description Data Ileana rce(s) Supporting Document(s) COVID19 SARS-CoV-2 IgG Ab Negative Negative [facility] No IgG antibodies to SARS-CoV-2 detected . Negative resultsmay occur in serum collected too soon following infectionor in immunosuppressed patients. Follow-up testing with amolecular test is recommended in symptomatic patients. Thistest should not be used to exclude active/recent COVID-19. ADDITIONAL INFORMATION Testing was performed using the [employer] Immun[employer] [id number]-2 IgG Reagent Pack assay ([employer] which has received EmergencyUse Authorization (EUA) by the U.S. Food and DrugAdministration.Fact sheets for this Emergency Use Authorization (EUA)assay can be found at the following links:For Healthcare Providers:https://www.fda.gov/media/040507/downloadFor Patients:https://www.fda.gov/media/892341/downloadTest Performed by:[address] [address] Director: Samir Longoria M.D. Ph.D.; CLIA# [id number] ID Date Data Source [id number] 08/12/2019 09:29:00 AM EDT [facility] ([facility]) Name Value Range Interpretation Code Description Data Ileana rce(s) Supporting Document(s) <0.2 0.0-1.0 CRP [facility] ([facility]) ID Date Data Source [id number] 08/12/2019 09:29:00 AM EDT [facility] ([facility]) Name Value Range Interpretation Code Description Data Ileana rce(s) Supporting Document(s) 51.7 mL/min/1.73m eGFR [facility]) 1.4 mg/dL 0.9-1.2 Above high normal CREATININE [facility] ([facility]) ID Date Data Source [id number] 08/12/2019 09:29:00 AM EDT [facility] ([facility]) Name Value Range Interpretation Code Description Data Ileana rce(s) Supporting Document(s) 212 U/L 39-308 CREATINE KINASE [facility]) ID Date Data Source [id number] 08/12/2019 09:29:00 AM EDT [facility] ([facility]) Name Value Range Interpretation Code Description Data Ileana rce(s) Supporting Document(s) 24 U/L 15-37 AST [facility]) ID Date Data Source [id number] 08/12/2019 09:29:00 AM EDT [facility] ([facility]) Name Value Range Interpretation Code Description Data Ileana rce(s) Supporting Document(s) 39 U/L 30-65 ALT [facility] ([facility]) ID Date Data Source [id number] 08/12/2019 09:29:00 AM EDT [facility] ([facility]) Name Value Range Interpretation Code Description Data Ileana rce(s) Supporting Document(s) <2 0-20 ESR [facility] ([facility]) ID Date Data Source [id number] 08/12/2019 09:29:00 AM EDT [facility] ([facility]) Name Value Range Interpretation Code Description Data Ileana rce(s) Supporting Document(s) 10.2 10*3/uL 3.7-10.1 Above high normal WBC [facility] ([facility]) 5.14 10*6/uL 4.00-5.90 RBC [facility] ([facility]) 15.1 g/dL 13.9-18.0 HGB [facility] ([facility]) 48.3 % 39.0-55.0 HCT [facility] ([facility]) 31.2 g/dL 31.0-37.0 MCHC [facility] ([facility]) 93.9 fL 70.0-100.0 MCV [facility] ([facility]) 29.3 pg 26.0-34.0 MCH [facility] ([facility]) 12.8 % 10.0-15.0 RDW [facility] ([facility]) 7.6 fL 6.0-10.0 MPV [facility] ([facility]) 226 10*3/uL 150-500 PLATELETS [facility] ([facility]) 7.03 10*3/uL 2.10-8.00 NHAN# [facility] ([facility]) 2.33 10*3/uL 1.00-5.00 LYM# [facility] ([facility]) 0.71 10*3/uL 0.10-1.00 MONO# [facility] ([facility]) 0.1 10*3/uL 0.0-0.5 EOS# [facility] ([facility]) 68.6 % 50.0-80.0 NHAN% [facility]) 0.1 10*3/uL 0.0-0.2 BASO# [facility] ([facility]) 0.8 % 0.0-4.0 BASO% [facility]) 22.7 % 25.0-50.0 Below low normal LYM% [facility] 0.9 % 0.0-5.0 EOS% [facility]) 6.9 % 2.0-10.0 MONO% [facility] ID Date Data Source PSA SCREENING 06/24/2019 12:00:00 AM EST eCW1 ([facility]) Name Value Range Interpretation Code Description Data Ileana rce(s) Supporting Document(s) 3.43 < 4.00 PSA SCREENING eCW1 ([facility]) ID Date Data Source FREE T4 & TSH PANEL 06/24/2019 12:00:00 AM EST eCW1 ([facility]) Name Value Range Interpretation Code Description Data Ileana rce(s) Supporting Document(s) 1.04 0.76-1.46 FREE T4 eCW1 ([facility]) 2.340 0.358-3.740 THYROID STIMULATING HORM ONE eCW1 ([facility]) ID Date Data Source Comprehensive Metabolic Profile (CMP) 06/24/2019 12:00:00 AM EST eCW1 ([facility]) Name Value Range Interpretation Code Description Data Ileana rce(s) Supporting Document(s) 23 7-18 BLOOD UREA NITROGEN eCW1 ([facility]) 88 70-100 GLUCOSE, FASTING eCW1 ([facility]) 142 136-145 SODIUM LEVEL eCW1 ([facility]) 49.7 >49 GLOMERULAR FILTRATION RATE eCW 1 ([facility]) 1.53 0.70-1.30 CREATININE FOR GFR eCW1 ([facility]) 29 21-32 CARBON DIOXIDE LEVEL eCW1 ([facility]) 9.2 8.8-10.2 CALCIUM LEVEL eCW1 ([facility]) 107 98-107 CHLORIDE LEVEL eCW1 ([facility]) 4.3 3.5-5.1 POTASSIUM SERUM eCW1 ([facility]) 0.6 0.2-1.0 BILIRUBIN,TOTAL eCW1 ([facility]) 23 12-78 ALT/SGPT eCW1 ([facility]) 6.9 6.4-8.2 TOTAL PROTEIN eCW1 ([facility]) 52 45-117 ALKALINE PHOSPHATASE eCW1 ([facility]) 19 7-37 AST/SGOT eCW1 ([facility]) 1.76 1.00-1.93 ALBUMIN/GLOBULIN RATIO eCW1 ([facility]) 4.4 3.2-5.2 ALBUMIN eCW1 ([facility]) ID Date Data Source CPK CREATINE PHOSPHOKINASE 06/24/2019 12:00:00 AM EST eCW1 ( [facility]) Name Value Range Interpretation Code Description Data Ileana rce(s) Supporting Document(s) 314 50-315 CPK CREATINE PHOSPHOKINASE eCW 1 ([facility]) Procedure Social History Code Duration Value Status Description Data Source(s ) Smoking 11/23/2019 12:00:00 AM EDT Never Smoker completed Never S moker eCW1 ([facility]) Caffeine Use Details 11/12/2019 12:00:00 AM EDT completed [facility] ([facility]) Smoking 11/12/2019 12:00:00 AM EDT Unknown if ever smoked comp leted Unknown if ever smoked [facility] ([facility]) Caffeine Use Details 08/12/2019 12:00:00 AM EDT completed [facility] ([facility]) 08/12/2019 12:00:00 AM EDT Never smoked tobacco comple josi Never smoked tobacco [facility] ([facility]) Vital Signs ID Date Data Source UNK Name Value Range Interpretation Code Description Data Source(s) Body weight 75.298 kg 75.298 kg [facility] ([facility]) Body mass index (BMI) [Ratio] 25.2 kg/m2 25.2 k g/m2 [facility] ([facility]) Body weight 166.00 [lb_av] 166.00 [lb_av] JEAN T ([facility]) Body height 68 [in_i] 68 [in_i] [facility] ([facility]) 5'8" Diastolic blood pressure 64 mm[Hg] 64 mm[Hg] [facility] ([facility]) Systolic blood pressure 108 mm[Hg] 108 mm[Hg] M EDGRACY ([facility]) Body mass index (BMI) [Ratio] 23.53 kg/m2 23.53 kg/m2 [facility] ([facility]) Diastolic blood pressure 70 mm[Hg] 70 mm[Hg] [facility] Systolic blood pressure 130 mm[Hg] 130 mm[Hg] N extGen ([facility] Body weight 74.389 kg 74.389 kg [facility] Body height 177.80 cm 177.80 cm [facility] Diastolic blood pressure 60 mm[Hg] 60 mm[Hg] eCW1 ([facility]) Systolic blood pressure 108 mm[Hg] 108 mm[Hg] e CW1 ([facility]) Body temperature 97.1 [degF] 97.1 [degF] eCW1 ( [facility]) Respiratory rate 18 /min 18 /min eCW1 ([facility]) Heart rate 92 /min 92 /min eCW1 ([facility]) Body mass index (BMI) [Ratio] 24.81 kg/m2 24.81 kg/m2 W1 ([facility]) Body height 69 [in_us] 69 [in_us] eCW1 ([facility]) Body weight Measured 168 [lb_av] 168 [lb_av] eC W1 ([facility]) Patient Treatment Plan of Care Planned Activity Planned Date Details Description Data Source (s) Hydroxychloroquine Sulfate 200 MG Oral Tablet [[place]] 03/30/2020 12:00:00 AM EDT [facility] ([facility]) mycophenolate mofetil 500 MG Oral Tablet 03/30/2020 12:00:00 AM EDT [facility] ([facility]) mycophenolate mofetil 500 MG Oral Tablet 02/17/2020 12:00:00 AM EDT [facility] ([facility]) Hydroxychloroquine Sulfate 200 MG Oral Tablet [[place]] 01/31/2020 12:00:00 AM EDT [facility] ([facility]) Hydroxychloroquine Sulfate 200 MG Oral Tablet [[place]] 11/10/2019 12:00:00 AM EDT [facility] ([facility]) mycophenolate mofetil 500 MG Oral Tablet 08/23/2019 12:00:00 AM EDT [facility] ([facility]) Hydroxychloroquine Sulfate 200 MG Oral Tablet [[place]] 08/23/2019 12:00:00 AM EDT [facility] ([facility]) mycophenolate mofetil 500 MG Oral Tablet 06/16/2019 12:00:00 AM EST [facility] ([facility]) Hydroxychloroquine Sulfate 200 MG Oral Tablet [[place]] 05/24/2019 12:00:00 AM EST [facility]) Hydroxychloroquine Sulfate 200 MG Oral Tablet [[place]] 02/16/2019 12:00:00 AM EDT [facility] ([facility]) mycophenolate mofetil 500 MG Oral Tablet 10/15/2018 12:00:00 AM EDT [facility] ([facility])
--- NOTE | 2020-06-30 10:57 | ROOR ---
Patient Name: Francis Conde Procedure Date: 06/30/2020 10:33 AM Date of : 1960 Age: 60 Room: [facility] Gender: Male Note Status: Finalized Procedure: Colonoscopy Indications: Family history of colon cancer Providers: Doron ISABEL MD Referring MD: Jose Luis Schilling MD Requesting Provider: Medicines: Monitored Anesthesia Care Complications: No immediate complications. Procedure: Pre-Anesthesia Assessment: - The heart rate, respiratory rate, oxygen saturations, blood pressure, adequacy of pulmonary ventilation, and response to care were monitored throughout the procedure. The Colonoscope was introduced through the anus and advanced to the terminal ileum, with identification of the appendiceal orifice and IC valve. The colonoscopy was performed without difficulty. The patient tolerated the procedure well. The quality of the bowel preparation was good. Findings: The perianal and digital rectal examinations were normal. Small Internal Hemorrhoids. The entire examined colon appeared normal on direct and retroflexion views. The terminal ileum appeared normal. Impression: - Small Internal Hemorrhoids. - The entire colon is normal on direct and retroflexion views. - The examined portion of the ileum was normal. - No specimens collected. Recommendation: - Repeat colonoscopy in 5 years for screening purposes. Procedure Code(s): --- Professional --- 77886, Colonoscopy, flexible; diagnostic, including collection of specimen(s) by brushing or washing, when performed (separate procedure) Diagnosis Code(s): --- Professional --- Z80.0, Family history of malignant neoplasm of digestive organs CPT copyright 2019 [employer]. All rights reserved. The codes documented in this report are preliminary and upon technical sales representatives review may be revised to meet current compliance requirements. Doron Isabel MD Doron ISABEL MD 06/30/2020 10:57:00 AM Electronically signed by Doron ISABEL MD Number of Addenda: 0 Note Initiated On: 06/30/2020 10:33 AM Estimated Blood Loss: Estimated blood loss: none.
[2020-06-30 11:15] VITALS: BP 127/71
[2020-06-30] MEDS ORDERED: SIMETHICONE 40MG/0.6ML DROPS 30ML As Ordered ONE (16:06)
== END 2020-06-30 11:16 | disposition home or self-care (01) ==
LOC: M OPP 09:00
PROVIDERS: ATTEND Internal Medicine Gastroenterology
DX: Z12.11 Encounter for screening for malignant neoplasm of colon (principal); Z80.0 Family history of malignant neoplasm of digestive organs; K64.8 Other hemorrhoids; I12.9 Hypertensive chronic kidney disease with stage 1 through stage 4 chronic kidney disease, or unspecified chronic kidney disease; R12 Heartburn; M32.9 Systemic lupus erythematosus, unspecified; G43.909 Migraine, unspecified, not intractable, without status migrainosus; N18.30 Chronic kidney disease, stage 3 unspecified; I73.00 Raynaud's syndrome without gangrene; E78.5 Hyperlipidemia, unspecified; M06.9 Rheumatoid arthritis, unspecified; Z88.8 Allergy status to other drugs, medicaments and biological substances; Z91.040 Latex allergy status; Z79.82 Long term (current) use of aspirin; Z79.899 Other long term (current) drug therapy; Z85.828 Personal history of other malignant neoplasm of skin; Z80.8 Family history of malignant neoplasm of other organs or systems; Z80.3 Family history of malignant neoplasm of breast; Z83.3 Family history of diabetes mellitus; Z80.41 Family history of malignant neoplasm of ovary

== ENCOUNTER → 2020-12-21 | Outpatient (REF) | payer MEDICARE, BC ==
[~2020-12-21] MED LIST changes: -LIDOCAINE 2% 100MG/5ML SDV (FOR ANES.) As Ordered ONE; -NS 1,000 ML IV ONE; -propofoL 200 MG/20 ML VIAL As Ordered ONE
[2020-12-21 13:05] LABS: BASO # 0.1 10^3/uL (0.0-0.2); BASO % 0.8 % (0.0-1.0); EOS # 0.1 10^3/uL (0.0-0.5); EOS % 1.5 % (0.0-3.0); HEMATOCRIT 44.8 % (42.0-52.0); HEMOGLOBIN 14.5 g/dl (13.5-17.5); LYMPH # 1.7 10^3/uL (1.5-5.0); LYMPH % 25.8 % (24.0-44.0); MEAN CORPUSCULAR HEMOGLOBIN 30.1 pg (27.0-33.0); MEAN CORPUSCULAR HGB CONC 32.4 g/dl (32.0-36.5); MEAN CORPUSCULAR VOLUME 93.1 fl (80.0-96.0); MONO # 0.6 10^3/uL (0.0-0.8); MONO % 8.3 % (2.0-8.0); NEUTROPHILS # 4.2 10^3/uL (1.5-8.5); NEUTROPHILS % 63.4 % (36.0-66.0); PLATELET COUNT, AUTOMATED 181 10^3/uL (150-450); RED BLOOD COUNT 4.81 10^6/uL (4.30-6.10); WHITE BLOOD COUNT 6.6 10^3/uL (4.0-10.0)
[2020-12-21 13:30] LABS: ALT/SGPT 50 U/L (12-78); BLOOD UREA NITROGEN 13 MG/DL (7-18); C REACTIVE PROTEIN QUANTITATIV < 0.30 MG/DL (0.00-0.30); COMPLEMENT C3 97 MG/DL (90-180); COMPLEMENT C4 27 MG/DL (10-40); CREATININE FOR GFR 1.33 MG/DL (0.70-1.30); GLOMERULAR FILTRATION RATE 58.2 (>49)
[2020-12-21 13:41] LABS: ERYTHROCYTE SEDIMENTATION RATE 3 mm/hr (0-20)
== END ==
LOC: M LABDRWAD 12:36
PROVIDERS: ATTEND Nurse Practitioner
DX: M32.9 Systemic lupus erythematosus, unspecified (principal); Z79.899 Other long term (current) drug therapy

== ENCOUNTER → 2020-12-21 | Outpatient (REF) | payer MEDICARE, BC ==
[2020-12-21 13:02] LABS: HEMOGLOBIN 14.2 g/dl (13.5-17.5); MEAN CORPUSCULAR HEMOGLOBIN 29.3 pg (27.0-33.0); MEAN CORPUSCULAR HGB CONC 31.6 g/dl (32.0-36.5); PLATELET COUNT, AUTOMATED 180 10^3/uL (150-450); RED BLOOD COUNT 4.84 10^6/uL (4.30-6.10); WHITE BLOOD COUNT 6.6 10^3/uL (4.0-10.0)
[2020-12-21 13:44] LABS: ALBUMIN 3.7 GM/DL (3.2-5.2); BILIRUBIN,TOTAL 0.6 MG/DL (0.2-1.0); CALCIUM LEVEL 8.5 MG/DL (8.8-10.2); CHOLESTEROL RISK RATIO 3.681 (<5); CREATININE FOR GFR 1.34 MG/DL (0.70-1.30); GLOMERULAR FILTRATION RATE 57.7 (>49); POTASSIUM SERUM 4.6 MEQ/L (3.5-5.1); TOTAL PROTEIN 6.3 GM/DL (6.4-8.2)
== END ==
LOC: M SFHCADAM 08:03
PROVIDERS: ATTEND Family Medicine
DX: M32.10 Systemic lupus erythematosus, organ or system involvement unspecified (principal); M33.29 Polymyositis with other organ involvement; N18.30 Chronic kidney disease, stage 3 unspecified; E78.2 Mixed hyperlipidemia; Z12.5 Encounter for screening for malignant neoplasm of prostate
CPT/HCPCS: 80053; 80061; 82550; G0103

== ENCOUNTER → 2021-12-19 | Outpatient (CLI) | payer MEDICARE, BC ==
[~2021-12-19] MED LIST changes: +OMEP-173 PO; -OMEP-218 PO
[2021-12-19 13:10] LABS: BASO # 0.1 10^3/uL (0.0-0.2); BASO % 0.9 % (0.0-1.0); EOS # 0.2 10^3/uL (0.0-0.5); EOS % 2.1 % (0.0-3.0); HEMATOCRIT 44.3 % (42.0-52.0); HEMOGLOBIN 14.2 g/dl (13.5-17.5); LYMPH # 1.9 10^3/uL (1.5-5.0); LYMPH % 23.6 % (24.0-44.0); MEAN CORPUSCULAR HEMOGLOBIN 29.3 pg (27.0-33.0); MEAN CORPUSCULAR HGB CONC 32.1 g/dl (32.0-36.5); MEAN CORPUSCULAR VOLUME 91.3 fl (80.0-96.0); MONO # 0.7 10^3/uL (0.0-0.8); MONO % 7.9 % (2.0-8.0); NEUTROPHILS # 5.4 10^3/uL (1.5-8.5); NEUTROPHILS % 65.3 % (36.0-66.0); PLATELET COUNT, AUTOMATED 184 10^3/uL (150-450); RED BLOOD COUNT 4.85 10^6/uL (4.30-6.10); WHITE BLOOD COUNT 8.2 10^3/uL (4.0-10.0)
[2021-12-19 13:34] LABS: ALT/SGPT 30 U/L (12-78); BLOOD UREA NITROGEN 19 MG/DL (7-18); C REACTIVE PROTEIN QUANTITATIV < 0.30 MG/DL (0.00-0.30); COMPLEMENT C3 104 MG/DL (90-180); COMPLEMENT C4 34 MG/DL (10-40); CREATININE FOR GFR 1.37 MG/DL (0.70-1.30); GLOMERULAR FILTRATION RATE 56.1 (>49)
[2021-12-19 13:43] LABS: ERYTHROCYTE SEDIMENTATION RATE 3 mm/hr (0-20)
== END ==
LOC: M ADAMS 11:02
PROVIDERS: ATTEND Nurse Practitioner
DX: M32.9 Systemic lupus erythematosus, unspecified (principal); Z79.899 Other long term (current) drug therapy; M35.1 Other overlap syndromes

== ENCOUNTER → 2022-01-02 | Outpatient (REF) | payer MEDICARE, BC ==
[2022-01-02 15:27] LABS: ALBUMIN 3.8 GM/DL (3.2-5.2); BILIRUBIN,TOTAL 0.7 MG/DL (0.2-1.0); CALCIUM LEVEL 9.6 MG/DL (8.8-10.2); CHOLESTEROL RISK RATIO 3.65 (<5); CREATININE FOR GFR 1.37 MG/DL (0.70-1.30); GLOMERULAR FILTRATION RATE 56.1 (>49); POTASSIUM SERUM 4.1 MEQ/L (3.5-5.1); TOTAL PROTEIN 6.6 GM/DL (6.4-8.2)
== END ==
LOC: M SFHCADAM 08:44
PROVIDERS: ATTEND Family Medicine
DX: N18.30 Chronic kidney disease, stage 3 unspecified (principal); E78.2 Mixed hyperlipidemia; Z12.5 Encounter for screening for malignant neoplasm of prostate

== ENCOUNTER → 2022-12-25 | Outpatient (REF) | payer MEDICARE, BC ==
[~2022-12-25] MED LIST changes: -HYDR200T3 PO; +HYDR200T46 PO
== END ==
LOC: M SFHCADAM 13:03
PROVIDERS: ATTEND Family Medicine
DX: M32.10 Systemic lupus erythematosus, organ or system involvement unspecified (principal); M33.29 Polymyositis with other organ involvement; E78.2 Mixed hyperlipidemia; Z12.5 Encounter for screening for malignant neoplasm of prostate

== ENCOUNTER → 2022-12-26 | Outpatient (REF) | payer MEDICARE, BC ==
[2022-12-26 13:41] LABS: HEMATOCRIT 44.7 % (42.0-52.0); HEMOGLOBIN 14.1 g/dl (13.5-17.5); MEAN CORPUSCULAR HEMOGLOBIN 29.3 pg (27.0-33.0); MEAN CORPUSCULAR HGB CONC 31.5 g/dl (32.0-36.5); MEAN CORPUSCULAR VOLUME 92.7 fl (80.0-96.0); PLATELET COUNT, AUTOMATED 211 10^3/uL (150-450); RED BLOOD COUNT 4.82 10^6/uL (4.30-6.10); WHITE BLOOD COUNT 6.4 10^3/uL (4.0-10.0)
[2022-12-26 14:12] LABS: ALBUMIN 3.9 G/DL (3.2-5.2); ALKALINE PHOSPHATASE 68 U/L (46-116); ALT/SGPT 28 U/L (7.0-40); AST/SGOT 22 U/L (<34); BILIRUBIN,TOTAL 0.8 MG/DL (0.3-1.2); BLOOD UREA NITROGEN 10 MG/DL (9-23); CALCIUM LEVEL 9.2 MG/DL (8.3-10.6); CARBON DIOXIDE LEVEL 28 MMOL/L (20-31); CHLORIDE LEVEL 107 MMOL/L (98-107); CHOLESTEROL LEVEL 164 MG/DL (<200); CREATININE FOR GFR 1.22 MG/DL (0.70-1.30); GLOMERULAR FILTRATION RATE > 60.0 (>49); GLUCOSE, FASTING 94 MG/DL (74-106); HDL CHOLESTEROL 34.1 MG/DL (>40); LDL CHOLESTEROL 112.1 MG/DL (<100); NON-HDL-C 129.9 MG/DL; POTASSIUM SERUM 3.9 MMOL/L (3.5-5.1); SODIUM LEVEL 142 MMOL/L (136-145); TOTAL PROTEIN 6.1 G/DL (5.7-8.2); TRIGLYCERIDES LEVEL 89 MG/DL (<150)
[2022-12-26 14:15] LABS: C REACTIVE PROTEIN QUANTITATIV < 0.40 MG/DL (<1.0)
== END ==
LOC: M SFHCADAM 07:14
PROVIDERS: ATTEND Family Medicine
DX: M32.10 Systemic lupus erythematosus, organ or system involvement unspecified (principal); M33.29 Polymyositis with other organ involvement; E78.2 Mixed hyperlipidemia; Z12.5 Encounter for screening for malignant neoplasm of prostate
CPT/HCPCS: 80053; 80061; 85027; 86140; G0103